=== PATIENT | male | born 1955 | race Caucasian/White ===

== ENCOUNTER → 2020-08-16 12:49 | Outpatient (CLI) | payer MEDICARE, BC, SELFPAY | PROVIDERS: PCP Family Medicine; Visit Provider Family Medicine | DX: I49.9 Cardiac arrhythmia, unspecified (principal) | CPT/HCPCS: 93225; 93226 ==

== ENCOUNTER → 2021-01-06 11:23 | Outpatient (CLI) | payer MEDICARE, BC, SELFPAY ==
--- NOTE | 2021-01-06 11:33 | XR_ITS ---
PROCEDURE INFORMATION: Exam: XR Right Hip Exam date and time: 01/06/2021 11:33 AM Age: 65 years old Clinical indication: Hip pain; Right hip; Additional info: Right hip pain TECHNIQUE: Imaging protocol: XR Right hip. Views: 2 or 3 views hip with pelvis when performed. COMPARISON: ABDPELWO CT abdomen pelvis wo con 08/19/2018 10:37 PM FINDINGS: Bones/joints: Patchy osteopenia. [id number] left and mild right hip osteoarthrosis. Mild degenerative spurring of the SI joints and pubic symphysis. Lower lumbar spondylosis, with moderate to advanced facet osteoarthropathy at L4-L5 and L5-S1. Soft tissues: Calcifications within the pelvis are probably within the prostate gland and bladder, as seen on prior CT study. IMPRESSION: 1. Mild right hip osteoarthrosis. 2. Additional degenerative changes as described.
== END ==
PROVIDERS: PCP Family Medicine; Visit Provider Family Medicine
DX: M25.551 Pain in right hip (principal)
CPT/HCPCS: 73502

== ENCOUNTER → 2021-02-14 08:04 | Outpatient (CLI) | payer MEDICARE, BC, SELFPAY ==
[2021-02-14 08:33] LABS: Basophils % 0.6 % (0.1-2.0); Eosinophils # 0.2 K/mm3 (0.0-0.4); Eosinophils % 2.4 % (0.1-12.0); Hemoglobin 17.9 g/dL (14.1-18.0); Lymphocytes % 27.1 % (10-50); Mean Corpuscular HGB Conc 33.8 g/dL (31.8-35.4); Mean Corpuscular Hemoglobin 30.6 pg (27.0-31.2); Mean Corpuscular Volume 90.4 fl (80-94); Mean Platelet Volume 7.9 fl (7.4-10.4); Monocytes # 0.5 K/mm3 (0.1-1.0); Monocytes % 6.4 % (1.7-9.3); Neutrophils # 4.7 K/mm3 (1.8-7.8); Neutrophils % 63.5 % (37.0-80.0); Platelet Count 372 K/mm3 (142-424); Red Blood Count 5.86 M/mm3 (4.60-6.20); Red Cell Distribution Width 14.4 % (11.5-17.5); White Blood Count 7.5 K/mm3 (4.8-10.8)
[2021-02-14 09:26] LABS: Chloride 102 mmol/L (98-107); Sodium 143 mmol/L (136-145)
[2021-02-14 09:27] LABS: Potassium 3.7 mmoL/L (3.5-5.1)
[2021-02-14 09:29] LABS: Alanine Aminotransferase 28 U/L (12-78); Albumin Level 4.3 g/dl (3.5-5.0); Albumin/Globulin Ratio 1.7 (1.1-1.8); Alkaline Phosphatase 64 U/L (38-126); Anion Gap 15.7 mEq/L (5-15); Aspartate Amino Transferase 27 U/L (17-59); Blood Urea Nitrogen 16 mg/dl (9-20); Carbon Dioxide 29 mmol/L (22.0-30.0); Cholesterol 194 mg/dl (140-200); Estimated Glomerular Filt Rate 75 ml/min (>60); GFR (African American) 91 ML/MIN (>60); Globulin 2.6 g/dL (1.3-3.2); Total Protein,Serum 6.9 g/dl (6.3-8.2); Triglycerides 144 mg/dl (30-150); VLDL Cholesterol 29 mg/dL (0-40)
[2021-02-14 09:30] LABS: Calcium 9.7 mg/dl (8.4-10.2); Chol/HDL Ratio 3.7 (1-3.5); Glucose 97 mg/dl (74-100); HDL Cholesterol 52 mg/dl (40-60)
[2021-02-14 09:41] LABS: Direct LDL Cholesterol 116.86 mg/dL (100-129)
[2021-02-14 10:40] LABS: Vitamin B12 877 pg/mL (239-931)
== END ==
PROVIDERS: Visit Provider Family Medicine
DX: I10 Essential (primary) hypertension (principal); E78.5 Hyperlipidemia, unspecified; E53.8 Deficiency of other specified B group vitamins
CPT/HCPCS: 36415; 80053; 80061; 82607; 85025

== ENCOUNTER → 2021-04-25 08:21 | Outpatient (CLI) | payer MEDICARE, BC, SELFPAY ==
[2021-04-25 08:24] LABS: Microscopic, Urine URINE MICROSCOPIC (MICROSCOPIC)
[2021-04-25 09:14] LABS: Basophils # 0.1 K/mm3 (0-0.2); Basophils % 0.8 % (0.1-2.0); Eosinophils # 0.2 K/mm3 (0.0-0.4); Eosinophils % 2.2 % (0.1-12.0); Hematocrit 52.3 % (42.0-52.0); Lymphocytes # 1.9 K/mm3 (0.7-4.5); Lymphocytes % 26.4 % (10-50); Mean Corpuscular HGB Conc 36.3 g/dL (31.8-35.4); Mean Corpuscular Hemoglobin 33.4 pg (27.0-31.2); Mean Corpuscular Volume 92.1 fl (80-94); Mean Platelet Volume 7.7 fl (7.4-10.4); Monocytes # 0.5 K/mm3 (0.1-1.0); Monocytes % 7.1 % (1.7-9.3); Neutrophils # 4.6 K/mm3 (1.8-7.8); Neutrophils % 63.6 % (37.0-80.0); Platelet Count 380 K/mm3 (142-424); Red Blood Count 5.68 M/mm3 (4.60-6.20); Red Cell Distribution Width 13.8 % (11.5-17.5); White Blood Count 7.2 K/mm3 (4.8-10.8)
[2021-04-25 10:17] LABS: Appearance,Urine CLEAR (Clear); Bilirubin,Urine Negative (Negative); Blood, Urine Negative (Negative); Color,Urine YELLOW (Yellow); Glucose,Urine (UA) Negative (Negative); Ketones,Urine Negative (Negative); Leukocyte Esterase,Urine 2+ (Negative); Nitrate,Urine Negative (Negative); PH,Urine 7.5 (5.0-8.5); Protein,Urine Negative (Negative); Urobilinogen,Urine 0.2 EU/dl (0.2)
[2021-04-25 10:18] LABS: Albumin Level 4.6 g/dl (3.5-5.0); Anion Gap 11.1 mEq/L (5-15); Blood Urea Nitrogen 13 mg/dl (9-20); Calcium 9.9 mg/dl (8.4-10.2); Carbon Dioxide 33 mmol/L (22.0-30.0); Chloride 101 mmol/L (98-107); Estimated Glomerular Filt Rate 85 ml/min (>60); GFR (African American) 102 ML/MIN (>60); Glucose 103 mg/dl (74-100); Phosphorous 3.3 mg/dl (2.5-4.5); Potassium 4.1 mmoL/L (3.5-5.1); Sodium 141 mmol/L (136-145)
[2021-04-25 10:30] LABS: Intact Parathyroid Hormone 43.2 pg/mL (7.5-53.5)
[2021-04-25 10:31] LABS: Creatinine,Urine Random 59 mg/dL (Not Estab.)
[2021-04-25 10:35] LABS: 25-OH Vitamin D, Total 37.5 ng/mL (30-100)
[2021-04-25 10:49] LABS: Bacteria,Urine 1+ /lpf; Squamous Epithelial Cell,Urine Occasional #/hpf (0-5)
== END ==
PROVIDERS: Visit Provider Student in an Organized Health Care Education/Training Program
DX: E83.50 Unspecified disorder of calcium metabolism (principal)
CPT/HCPCS: 36415; 80069; 81001; 82306; 82570; 83970; 84155; 85025; 87086

== ENCOUNTER → 2021-08-01 07:44 | Outpatient (CLI) | payer MEDICARE, BC, SELFPAY ==
[2021-08-01 08:30] LABS: Basophils # 0.1 K/mm3 (0-0.2); Basophils % 1.7 % (0.1-2.0); Eosinophils # 0.2 K/mm3 (0.0-0.4); Eosinophils % 2.6 % (0.1-12.0); Hematocrit 53.4 % (42.0-52.0); Hemoglobin 17.6 g/dL (14.1-18.0); Lymphocytes # 2.2 K/mm3 (0.7-4.5); Lymphocytes % 29.7 % (10-50); Mean Corpuscular HGB Conc 32.9 g/dL (31.8-35.4); Mean Platelet Volume 8.1 fl (7.4-10.4); Monocytes # 0.4 K/mm3 (0.1-1.0); Monocytes % 5.7 % (1.7-9.3); Neutrophils # 4.5 K/mm3 (1.8-7.8); Neutrophils % 60.3 % (37.0-80.0); Platelet Count 372 K/mm3 (142-424); Red Blood Count 5.87 M/mm3 (4.60-6.20); Red Cell Distribution Width 14.1 % (11.5-17.5); White Blood Count 7.4 K/mm3 (4.8-10.8)
[2021-08-01 08:51] LABS: Chloride 100 mmol/L (98-107); Sodium 138 mmol/L (136-145)
[2021-08-01 08:52] LABS: Potassium 3.9 mmoL/L (3.5-5.1)
[2021-08-01 08:54] LABS: Alanine Aminotransferase 37 U/L (12-78); Albumin Level 4.5 g/dl (3.5-5.0); Albumin/Globulin Ratio 1.9 (1.1-1.8); Alkaline Phosphatase 49 U/L (38-126); Anion Gap 9.9 mEq/L (5-15); Aspartate Amino Transferase 29 U/L (17-59); Bilirubin,Total 2.3 mg/dl (0.2-1.3); Blood Urea Nitrogen 14 mg/dl (9-20); Carbon Dioxide 32 mmol/L (22.0-30.0); Cholesterol 190 mg/dl (140-200); Estimated Glomerular Filt Rate 75 ml/min (>60); GFR (African American) 90 ML/MIN (>60); Globulin 2.4 g/dL (1.3-3.2); Total Protein,Serum 6.9 g/dl (6.3-8.2); Triglycerides 141 mg/dl (30-150); VLDL Cholesterol 28 mg/dL (0-40)
[2021-08-01 08:55] LABS: Calcium 9.8 mg/dl (8.4-10.2); Chol/HDL Ratio 3.9 (1-3.5); Glucose 103 mg/dl (74-100); HDL Cholesterol 49 mg/dl (40-60)
[2021-08-01 12:14] LABS: Vitamin B12 > 1000 pg/mL (239-931)
[2021-08-04 13:05] LABS: Prostate Specific Ag, Diagnost 2.14 ng/ml (0.0-4.0)
== END ==
PROVIDERS: PCP Family Medicine; Visit Provider Family Medicine
DX: I10 Essential (primary) hypertension (principal); E78.5 Hyperlipidemia, unspecified; E53.8 Deficiency of other specified B group vitamins; R35.0 Frequency of micturition
CPT/HCPCS: 36415; 80053; 80061; 82607; 84153; 85025

== ENCOUNTER → 2021-10-11 09:41 | Outpatient (CLI) | payer MEDICARE, BC, SELFPAY | PROVIDERS: PCP Family Medicine; Visit Provider Family Medicine | DX: Z20.822 Contact with and (suspected) exposure to COVID-19 (principal) | CPT/HCPCS: 87275; 87276; C9803; U0003; U0005 ==

== ENCOUNTER → 2022-02-06 07:31 | Outpatient (CLI) | payer MEDICARE, BC, SELFPAY ==
[2022-02-06 08:20] LABS: Basophils # 0.1 K/mm3 (0-0.2); Basophils % 1.4 % (0.1-2.0); Eosinophils # 0.2 K/mm3 (0.0-0.4); Eosinophils % 3.3 % (0.1-12.0); Hematocrit 52.9 % (42.0-52.0); Lymphocytes % 29.4 % (10-50); Mean Corpuscular HGB Conc 32.1 g/dL (31.8-35.4); Mean Corpuscular Volume 93.2 fl (80-94); Mean Platelet Volume 8.3 fl (7.4-10.4); Monocytes # 0.5 K/mm3 (0.1-1.0); Monocytes % 7.6 % (1.7-9.3); Neutrophils # 3.9 K/mm3 (1.8-7.8); Neutrophils % 58.3 % (37.0-80.0); Platelet Count 350 K/mm3 (142-424); Red Blood Count 5.67 M/mm3 (4.60-6.20); Red Cell Distribution Width 14.4 % (11.5-17.5); White Blood Count 6.8 K/mm3 (4.8-10.8)
[2022-02-06 08:52] LABS: Chloride 105 mmol/L (98-107); Potassium 3.8 mmoL/L (3.5-5.1); Sodium 140 mmol/L (136-145)
[2022-02-06 08:54] LABS: Alanine Aminotransferase 30 U/L (12-78); Aspartate Amino Transferase 33 U/L (17-59); Blood Urea Nitrogen 15 mg/dl (9-20); Estimated Glomerular Filt Rate 75 ml/min (>60); GFR (African American) 90 ML/MIN (>60)
[2022-02-06 08:55] LABS: Albumin Level 4.3 g/dl (3.5-5.0); Albumin/Globulin Ratio 1.7 (1.1-1.8); Alkaline Phosphatase 53 U/L (38-126); Anion Gap 7.8 mEq/L (5-15); Bilirubin,Total 2.7 mg/dl (0.2-1.3); Calcium 9.4 mg/dl (8.4-10.2); Carbon Dioxide 31 mmol/L (22.0-30.0); Cholesterol 173 mg/dl (140-200); Globulin 2.5 g/dL (1.3-3.2); Glucose 101 mg/dl (74-100); Total Protein,Serum 6.8 g/dl (6.3-8.2); Triglycerides 123 mg/dl (30-150); VLDL Cholesterol 25 mg/dL (0-40)
[2022-02-06 08:56] LABS: Chol/HDL Ratio 3.8 (1-3.5); HDL Cholesterol 45 mg/dl (40-60)
[2022-02-06 10:18] LABS: Vitamin B12 302 pg/mL (239-931)
[2022-02-07 08:43] LABS: Direct LDL Cholesterol 108 mg/dL (100-129)
== END ==
PROVIDERS: PCP Family Medicine; Visit Provider Family Medicine
DX: E53.8 Deficiency of other specified B group vitamins (principal); E78.5 Hyperlipidemia, unspecified; I10 Essential (primary) hypertension; C7A.012 Malignant carcinoid tumor of the ileum
CPT/HCPCS: 36415; 80053; 80061; 82607; 85025

== ENCOUNTER 2022-04-25 17:23 | Emergency (ER) | payer MEDICARE, BC, SELFPAY ==
[2022-04-25 18:25] VITALS: BP 179/100; PULSE 84; RESP 18; TEMP 36.6; O2SAT 98; BMI 32.4
--- NOTE | 2022-04-25 18:52 | HMH.EDGENADL ---
Discharge Plan Disposition Patient Disposition: Home, Self-Care Condition: Good Chief Complaint: Urogenital-Female Prescriptions Prescriptions: No Action tamsulosin 0.4 MG capsule 0.4 mg PO HS Qty: 10 0RF oxycodone-acetaminophen 1 EACH Tablet 1 tab PO QID PRN (Reason: Moderate To Severe Pain) Qty: 10 0RF oxycodone-acetaminophen 1 EACH tablet 1 tab PO QID PRN (Reason: Moderate To Severe Pain) Qty: 10 0RF Referrals Follow up/Referrals: Luis Lu MD [Primary Care Provider] - See instructions Activity Restrictions/Add. Instructions Additional Instructions/Restrictions: Call your urologist tomorrow for further instructions and to arrange removal of Xavier catheter Clinical Impressions Clinical Impression: Acute urinary retention Instructions Patient Instructions: DI for Urinary Retention in Men, How to Care for Your Xavier Catheter -- Male Discharge ED Provider: Farhat Ya General Adult HPI General Chief complaint: Urogenital-Female Stated complaint: POST OP 04/25 ON KIDNEY STONES CANT URINATE Time Seen by Provider: 04/25/22 18:46 Mode of Arrival: Ambulatory Source of Information: Patient Limitations: No Limitations Description of Symptoms (Recalled from ER Triage Doc. by RN): Patient reports he had a lithotripsy procedure done this morning at 0730 for kidney stones at [facility] and patient says he is unable to urinate since his procedure. History of Present Illness HPI narrative: Patient complains of urinary retention. He had lithotripsy at [address] [facility] and has not been able to urinate since. Complains of bladder distention. He tried to call his urologist, but did not get a return call, he called his primary care provider, Dr. Lu, who advised him to come to the emergency department. He has a history of 1 previous episode of urinary retention after surgery where he had to have a Xavier catheter reinserted. He has had a Xavier catheter inserted in our emergency department prior to my arrival and states that he feels much better. 900 cc of urine output. Related Data Previous Rx's Medication Instructions Recorded oxycodone-acetaminophen 7.5 mg-325 1 tab PO QID PRN Moderate To 08/19/18 mg tablet Severe Pain ##10 oxycodone-acetaminophen 7.5 mg-325 1 tab PO QID PRN Moderate To 08/19/18 mg tablet Severe Pain #10 tabs tamsulosin 0.4 mg capsule 0.4 mg PO HS #10 caps 08/19/18 Allergies Allergy/AdvReac Type Severity Reaction Status Date / Time No Known Allergies Allergy Verified 08/19/18 22:20 PFSH PFS Social History Smoking Status: Never smoker alcohol intake: current current occupational status: employed Travel in the last 8 weeks: None current occupational exposures/hazards: No ROS Obtained: Yes Systems reviewed as appropriate & no additional complaints except as documented Constitutional Constitutional: Denies fever(s) Gastrointestinal Gastrointestingal: Denies vomiting Genitourinary Male Genitourinary: Reports difficulty urinating Physical Exam General General appearance: alert and in no apparent distress Chest Chest inspection: Present normal inspection and symmetric chest wall rise Respiratory Respiratory exam: Absent respiratory distress Cardiovascular Cardiovascular exam: Present regular rate exam: Present other (Xavier catheter in place. 900 cc of urine in Xavier catheter bag with blood tingeing.) Neurological Exam Neurological exam: Present alert and oriented X3 Psychiatric Psychiatric exam: Present normal affect and normal mood Skin Skin exam: Present warm and dry Medical Decision Making Martín Inquiry Pt receiving controlled substance: No Vital Signs: 04/25/22 18:25 Temperature 97.9 F Temperature Source Oral Pulse Rate [Right Brachial] 84 Respiratory Rate 18 Blood Pressure [Right Arm] 179/100 H Blood Pressure Mean [Right Arm] 126 Blood Pressure Source [Right Arm] Automatic Cuff Blood Pres
[2022-04-25 19:48] VITALS: BP 167/78; PULSE 80; RESP 18; TEMP 36.6; O2SAT 98
== END 2022-04-25 19:49 | disposition home or self-care (01) ==
PROVIDERS: Emergency Provider Emergency Medicine; PCP Family Medicine
DX: R33.8 Other retention of urine (principal); Z87.442 Personal history of urinary calculi; Z98.890 Other specified postprocedural states
CPT/HCPCS: 99282

== ENCOUNTER → 2022-05-01 07:19 | Outpatient (CLI) | payer MEDICARE, BC, SELFPAY ==
[2022-05-01 07:32] LABS: Microscopic, Urine URINE MICROSCOPIC (MICROSCOPIC)
[2022-05-01 08:39] LABS: Appearance,Urine CLEAR (Clear); Basophils # 0.1 K/mm3 (0-0.2); Basophils % 1.3 % (0.1-2.0); Bilirubin,Urine Negative (Negative); Blood, Urine TRACE-I (Negative); Color,Urine YELLOW (Yellow); Eosinophils # 0.2 K/mm3 (0.0-0.4); Eosinophils % 2.7 % (0.1-12.0); Glucose,Urine (UA) Negative (Negative); Hemoglobin 17.6 g/dL (14.1-18.0); Ketones,Urine Negative (Negative); Leukocyte Esterase,Urine Negative (Negative); Lymphocytes # 1.9 K/mm3 (0.7-4.5); Mean Corpuscular HGB Conc 33.1 g/dL (31.8-35.4); Mean Corpuscular Volume 90.6 fl (80-94); Monocytes # 0.5 K/mm3 (0.1-1.0); Monocytes % 6.7 % (1.7-9.3); Neutrophils # 4.5 K/mm3 (1.8-7.8); Neutrophils % 63.2 % (37.0-80.0); Nitrate,Urine Negative (Negative); Platelet Count 353 K/mm3 (142-424); Protein,Urine Negative (Negative); Red Blood Count 5.85 M/mm3 (4.60-6.20); Red Cell Distribution Width 14.4 % (11.5-17.5); Urobilinogen,Urine 0.2 EU/dl (0.2); White Blood Count 7.1 K/mm3 (4.8-10.8)
[2022-05-01 08:50] LABS: Creatinine,Urine Random 79 mg/dL (Not Estab.)
[2022-05-01 09:18] LABS: Squamous Epithelial Cell,Urine Occasional #/hpf (0-5); WBC,Urine Occasional #/hpf (0-3)
[2022-05-01 09:19] LABS: Albumin Level 4.4 g/dl (3.5-5.0); Anion Gap 16.9 mEq/L (5-15); Blood Urea Nitrogen 20 mg/dl (9-20); Calcium 10.4 mg/dl (8.4-10.2); Carbon Dioxide 32 mmol/L (22.0-30.0); Chloride 98 mmol/L (98-107); Estimated Glomerular Filt Rate 67 ml/min (>60); GFR (African American) 81 ML/MIN (>60); Glucose 96 mg/dl (74-100); Phosphorous 3.7 mg/dl (2.5-4.5); Potassium 3.9 mmoL/L (3.5-5.1); Sodium 143 mmol/L (136-145)
== END ==
PROVIDERS: PCP Family Medicine; Visit Provider Student in an Organized Health Care Education/Training Program
DX: N20.0 Calculus of kidney (principal)
CPT/HCPCS: 36415; 80069; 81001; 82570; 84155; 85025

== ENCOUNTER 2022-06-23 11:15 | Emergency (ER) | payer MEDICARE, BC, SELFPAY ==
[2022-06-23 11:16] VITALS: BP 126/58; PULSE 62; RESP 16; TEMP 36.4; O2SAT 96; BMI 32.4
[2022-06-23 11:27] LABS: Microscopic, Urine URINE MICROSCOPIC (MICROSCOPIC)
[2022-06-23 11:35] LABS: Appearance,Urine SL CLOUDY (Clear); Bilirubin,Urine Negative (Negative); Blood, Urine 3+ (Negative); Color,Urine AMBER (Yellow); Glucose,Urine (UA) Negative (Negative); Ketones,Urine Negative (Negative); Leukocyte Esterase,Urine Negative (Negative); Nitrate,Urine Negative (Negative); Protein,Urine TRACE (Negative); Specific Gravity, Urine 1.025 (1.005-1.030); Urobilinogen,Urine 0.2 EU/dl (0.2)
--- NOTE | 2022-06-23 11:38 | CT_ITS ---
PROCEDURE INFORMATION: Exam: CT Abdomen And Pelvis Without Contrast Exam date and time: 06/23/2022 12:12 PM Age: 67 years old Clinical indication: Abdominal pain; Patient HX: Right flank pain, HX kidney stones; Additional info: C/O right side pain TECHNIQUE: Imaging protocol: Computed tomography of the abdomen and pelvis without contrast. Radiation optimization: All CT scans at this facility use at least one of these dose optimization techniques: automated exposure control; mA and/or kV adjustment per patient size (includes targeted exams where dose is matched to clinical indication); or iterative reconstruction. COMPARISON: COUNTS INCLUDE 234 BEDS AT [facility] CT abdomen pelvis wo con 08/19/2018 10:37 PM FINDINGS: Lungs: Bibasilar hypoventilatory changes otherwise lung bases are clear. Chronic granulomatous calcifications within the spleen, unchanged. No splenomegaly. Liver: Normal. No mass. Gallbladder and bile ducts: Solitary 2 cm gallstone otherwise Gallbladder has unremarkable. Pancreas: Unremarkable. Main pancreatic duct is not significantly dilated. Spleen: See Lungs finding. Adrenal glands: Normal. No mass. Kidneys and ureters: 3 mm obstructing calculus distal 3rd right ureter 5 cm above the right ureterovesical junction resulting in mild right-sided hydronephrosis. Small nonobstructing left renal stone superimposed on small peripelvic cysts, unchanged. Stomach and bowel: Stable postsurgical changes transverse colon. Stable small pelvic lymph nodes favoring benign etiology. Appendix: No evidence of appendicitis. Intraperitoneal space: Unremarkable. No free air. No significant fluid collection. Vasculature: Unremarkable. No abdominal aortic aneurysm. Lymph nodes: See Stomach and bowel finding. Urinary bladder: Numerous small bladder calculi within the dependent portion of the urinary bladder many of which were present previously. Reproductive: Prostate gland is mildly enlarged. Bones/joints: Scattered degenerative changes of the lower thoracic and lumbar spine. No acute bony abnormalities. Soft tissues: Moderate size fat containing right inguinal hernia stable in size but now contains an oblong shaped fluid like structure measuring 4 x 2 cm likely representing some trapped ascitic fluid. Small left fat containing inguinal hernia unchanged. IMPRESSION: 1. 3 mm obstructing calculus right distal ureter resulting in mild right hydronephrosis. 2. Tiny nonobstructing left renal stone in numerous bladder calculi, unchanged. 3. Stable size of right sided fat containing inguinal hernia which now contains small amount of trapped ascitic fluid. 4. Additional nonemergent findings as above.
[2022-06-23 11:45] LABS: Bacteria,Urine Trace /lpf; RBC,Urine 50-100 #/hpf (0-3); Squamous Epithelial Cell,Urine Occasional #/hpf (0-5)
[2022-06-23 11:47] LABS: Chloride 101 mmol/L (98-107); Potassium 3.1 mmoL/L (3.5-5.1); Sodium 141 mmol/L (136-145)
[2022-06-23 11:49] LABS: Amylase 64 U/L (30-110)
[2022-06-23 11:50] LABS: Alanine Aminotransferase 42 U/L (12-78); Albumin Level 4.4 g/dl (3.5-5.0); Albumin/Globulin Ratio 1.6 (1.1-1.8); Alkaline Phosphatase 60 U/L (38-126); Anion Gap 15.1 mEq/L (5-15); Aspartate Amino Transferase 37 U/L (17-59); Basophils # 0.1 K/mm3 (0-0.2); Basophils % 0.5 % (0.1-2.0); Bilirubin,Total 1.8 mg/dl (0.2-1.3); Blood Urea Nitrogen 16 mg/dl (9-20); Calcium 9.5 mg/dl (8.4-10.2); Carbon Dioxide 28 mmol/L (22.0-30.0); Creatinine Clearance Estimated 82 mL/min (50-200); Eosinophils % 0.3 % (0.1-12.0); Estimated Glomerular Filt Rate 67 ml/min (>60); GFR (African American) 81 ML/MIN (>60); Globulin 2.7 g/dL (1.3-3.2); Glucose 157 mg/dl (74-100); Hematocrit 51.6 % (42.0-52.0); Hemoglobin 17.1 g/dL (14.1-18.0); Lipase 55 U/L (23-300); Lymphocytes # 1.8 K/mm3 (0.7-4.5); Lymphocytes % 13.2 % (10-50); Mean Corpuscular HGB Conc 33.1 g/dL (31.8-35.4); Mean Corpuscular Hemoglobin 29.6 pg (27.0-31.2); Mean Corpuscular Volume 89.5 fl (80-94); Monocytes # 0.4 K/mm3 (0.1-1.0); Monocytes % 3.1 % (1.7-9.3); Neutrophils # 11.2 K/mm3 (1.8-7.8); Neutrophils % 82.9 % (37.0-80.0); Platelet Count 405 K/mm3 (142-424); Red Blood Count 5.77 M/mm3 (4.60-6.20); Red Cell Distribution Width 14.1 % (11.5-17.5); Total Protein,Serum 7.1 g/dl (6.3-8.2); White Blood Count 13.5 K/mm3 (4.8-10.8)
[2022-06-23 12:00] VITALS: BP 133/59; PULSE 64; O2SAT 96
--- NOTE | 2022-06-23 12:01 | PC.NURSE ---
checked on patient, he is resting on ED stretcher with daughter at BS. They report they are both doing fine, call light within reach
--- NOTE | 2022-06-23 12:03 | HMH.EDGENADL ---
Discharge Plan Disposition Patient Disposition: Home, Self-Care Condition: Good Prescriptions Prescriptions: New oxycodone-acetaminophen [Percocet] 7.5-325 mg tablet 1 tab PO Q6H PRN (Reason: pain) Qty: 10 0RF ondansetron 4 mg tablet,disintegrating 4 mg PO Q8H PRN (Reason: nausea and vomiting) Qty: 10 0RF No Action tamsulosin 0.4 MG capsule 0.4 mg PO HS Qty: 10 0RF oxycodone-acetaminophen 1 EACH tablet 1 tab PO QID PRN (Reason: Moderate To Severe Pain) Qty: 10 0RF oxycodone-acetaminophen 1 EACH tablet 1 tab PO QID PRN (Reason: Moderate To Severe Pain) Qty: 10 0RF Referrals Follow up/Referrals: Luis Lu MD [Primary Care Provider] - See instructions Activity Restrictions/Add. Instructions Additional Instructions/Restrictions: Continue taking the Flomax. Percocet as needed for pain. Zofran as needed for nausea. See Dr. Rodriguez as soon as possible for further evaluation. Take the disc of your CAT scan with you to follow-up appointment. Drink plenty of fluids. Strain your urine and save any stones you catch. Return immediately if you develop a fever or have uncontrollable vomiting or uncontrollable pain. Additional instructions for CONTROLLED SUBSTANCES: You have been prescribed a medication that is a controlled substance. Controlled substances include pain medications known as opiates and sedative nerve medications known as benzodiazepines. Tramadol, fioricet, and gabapentin are also controlled substances. Some common opiates include: Codeine (such as Tylenol #3) Hydrocodone (Vicodin, Lortab, Lorcet, [place]) Oxycodone (Percocet, Percodan, Oxycodone, Oxy IR) Some common benzodiazepines include: Diazepam (Valium) Lorazepam (Ativan) Alprazolam (Xanax) Clonazepam (Klonopin) Oxazepam (Serax) All of these controlled substances are highly addictive and frequently abused. Misuse can and frequently does lead to addiction as well as overdose and . Medication should be stored in a locked cabinet or other secure storage unit. Do not store the medication in a motor vehicle. Short term supplies, 3 days or less, are prescribed because of the highly addictive nature of the medication. Any of the controlled substance medication NOT taken should be disposed of properly and NOT SAVED. The recommended method of disposing of unused medications is: Place the medicines in a sealable plastic bag. If the medicine is a solid, crush it or add water to dissolve it. Add something undesirable (cat litter, coffee grounds, etc.) Dispose of sealed bag in household trash Do not flush or pour unused medicines down a sink or drain. Controlled substances should not be shared, given away or sold. Because of the addictive nature and frequent abuse, these medications are sometimes stolen. These medications should be kept in a safe place where they cannot be stolen. Do not keep them in your car or purse. Lost or stolen prescriptions for controlled substances WILL NOT BE REFILLED in this emergency department, regardless of whether a police report was filed. Clinical Impressions Clinical Impression: Right ureteral calculus, Bladder calculi, Calculus of left kidney Instructions Patient Instructions: DI for Kidney Stones Discharge ED Provider: Farhat Ya General Adult HPI General Chief complaint: PAIN Stated complaint: Possible kidney stone Time Seen by Provider: 06/23/22 12:00 Mode of Arrival: Ambulatory Source of Information: Patient Limitations: No Limitations Description of Symptoms (Recalled from ER Triage Doc. by RN): c/o right groin pain that goes up to his right side that woke him up around 0630 this am. States some nausea since he got here, no burning, irritation or blood noted in urine. Hx of kidney stones ans states this pain feels the same as with the past kidney stone pain. History of Present Illness HPI narrative: Patient believes that he is passing a
[2022-06-23 12:30] VITALS: BP 122/65; PULSE 64; RESP 16; O2SAT 96
--- NOTE | 2022-06-23 12:58 | PC.NURSE ---
pt resting on ED stretcher with daughter at BS, no other needs at this time
[2022-06-23 13:47] VITALS: BP 131/72; PULSE 72; O2SAT 96
[2022-06-23 14:00] VITALS: BP 127/69; PULSE 66; O2SAT 94
[2022-06-23 14:24] VITALS: BP 127/69; PULSE 66; RESP 15; TEMP 36.4; O2SAT 95
== END 2022-06-23 14:27 | disposition home or self-care (01) ==
PROVIDERS: Emergency Provider Emergency Medicine; PCP Family Medicine
DX: N20.2 Calculus of kidney with calculus of ureter (principal); N21.0 Calculus in bladder
CPT/HCPCS: 74176; 80053; 81001; 82150; 83690; 85025; 96361; 96374; 96375; 99285; J2405

== ENCOUNTER → 2022-08-05 07:52 | Outpatient (CLI) | payer MEDICARE, BC, SELFPAY ==
[2022-08-05 08:42] LABS: Basophils # 0.1 K/mm3 (0-0.2); Basophils % 1.3 % (0.1-2.0); Eosinophils # 0.2 K/mm3 (0.0-0.4); Eosinophils % 3.3 % (0.1-12.0); Hematocrit 51.4 % (42.0-52.0); Hemoglobin 16.8 g/dL (14.1-18.0); Lymphocytes # 2.2 K/mm3 (0.7-4.5); Lymphocytes % 30.9 % (10-50); Mean Corpuscular HGB Conc 32.8 g/dL (31.8-35.4); Mean Corpuscular Volume 88.5 fl (80-94); Monocytes # 0.5 K/mm3 (0.1-1.0); Monocytes % 6.6 % (1.7-9.3); Neutrophils # 4.2 K/mm3 (1.8-7.8); Neutrophils % 57.8 % (37.0-80.0); Platelet Count 336 K/mm3 (142-424); Red Blood Count 5.81 M/mm3 (4.60-6.20); Red Cell Distribution Width 14.2 % (11.5-17.5); White Blood Count 7.3 K/mm3 (4.8-10.8)
[2022-08-05 09:36] LABS: Alanine Aminotransferase 33 U/L (12-78); Albumin Level 4.3 g/dl (3.5-5.0); Albumin/Globulin Ratio 1.9 (1.1-1.8); Alkaline Phosphatase 56 U/L (38-126); Anion Gap 8.7 mEq/L (5-15); Aspartate Amino Transferase 28 U/L (17-59); Bilirubin,Total 1.3 mg/dl (0.2-1.3); Blood Urea Nitrogen 19 mg/dl (9-20); Calcium 9.2 mg/dl (8.4-10.2); Carbon Dioxide 31 mmol/L (22.0-30.0); Chloride 106 mmol/L (98-107); Chol/HDL Ratio 3.6 (1-3.5); Cholesterol 173 mg/dl (140-200); Estimated Glomerular Filt Rate 67 ml/min (>60); GFR (African American) 81 ML/MIN (>60); Globulin 2.3 g/dL (1.3-3.2); Glucose 89 mg/dl (74-100); HDL Cholesterol 48 mg/dl (40-60); Potassium 3.7 mmoL/L (3.5-5.1); Sodium 142 mmol/L (136-145); Total Protein,Serum 6.6 g/dl (6.3-8.2); Triglycerides 150 mg/dl (30-150); VLDL Cholesterol 30 mg/dL (0-40)
[2022-08-05 09:47] LABS: Direct LDL Cholesterol 96.07 mg/dL (100-129)
[2022-08-05 10:05] LABS: Prostate Specific Ag Screen 2.4 ng/ml (0.0-4.0)
[2022-08-05 10:24] LABS: Vitamin B12 421 pg/mL (239-931)
== END ==
PROVIDERS: PCP Family Medicine; Visit Provider Family Medicine
DX: I10 Essential (primary) hypertension (principal); E78.5 Hyperlipidemia, unspecified; E53.8 Deficiency of other specified B group vitamins; N40.2 Nodular prostate without lower urinary tract symptoms; Z12.5 Encounter for screening for malignant neoplasm of prostate
CPT/HCPCS: 36415; 80053; 80061; 82607; 85025; G0103

== ENCOUNTER → 2023-02-03 07:41 | Outpatient (CLI) | payer MEDICARE, BC, SELFPAY ==
[2023-02-03 07:56] LABS: Microscopic, Urine URINE MICROSCOPIC (MICROSCOPIC)
[2023-02-03 08:18] LABS: Basophils % 0.4 % (0.1-2.0); Eosinophils # 0.2 K/mm3 (0.0-0.4); Eosinophils % 2.1 % (0.1-12.0); Hemoglobin 16.3 g/dL (14.1-18.0); Lymphocytes # 2.2 K/mm3 (0.7-4.5); Lymphocytes % 28.4 % (10-50); Mean Corpuscular HGB Conc 32.6 g/dL (31.8-35.4); Mean Corpuscular Volume 89.1 fl (80-94); Monocytes # 0.5 K/mm3 (0.1-1.0); Monocytes % 6.3 % (1.7-9.3); Neutrophils # 4.8 K/mm3 (1.8-7.8); Neutrophils % 62.7 % (37.0-80.0); Platelet Count 319 K/mm3 (142-424); Red Blood Count 5.62 M/mm3 (4.60-6.20); Red Cell Distribution Width 14.3 % (11.5-17.5); White Blood Count 7.6 K/mm3 (4.8-10.8)
[2023-02-03 08:30] LABS: Appearance,Urine SL CLOUDY (Clear); Bilirubin,Urine Negative (Negative); Blood, Urine TRACE-I (Negative); Color,Urine YELLOW (Yellow); Glucose,Urine (UA) Negative (Negative); Ketones,Urine Negative (Negative); Leukocyte Esterase,Urine 2+ (Negative); Nitrate,Urine Negative (Negative); PH,Urine 6.5 (5.0-8.5); Protein,Urine Negative (Negative); Urobilinogen,Urine 0.2 EU/dl (0.2)
[2023-02-03 08:45] LABS: Alanine Aminotransferase 40 U/L (12-78); Albumin Level 4.4 g/dl (3.5-5.0); Albumin/Globulin Ratio 1.7 (1.1-1.8); Alkaline Phosphatase 59 U/L (38-126); Anion Gap 11.6 mEq/L (5-15); Aspartate Amino Transferase 30 U/L (17-59); Bilirubin,Total 2.4 mg/dl (0.2-1.3); Blood Urea Nitrogen 21 mg/dl (9-20); Calcium 9.7 mg/dl (8.4-10.2); Carbon Dioxide 30 mmol/L (22.0-30.0); Chloride 104 mmol/L (98-107); Cholesterol 207 mg/dl (140-200); Estimated Glomerular Filt Rate 84 ml/min (>60); GFR (African American) 102 ML/MIN (>60); Globulin 2.6 g/dL (1.3-3.2); Glucose 98 mg/dl (74-100); HDL Cholesterol 52 mg/dl (40-60); Potassium 3.6 mmoL/L (3.5-5.1); Sodium 142 mmol/L (136-145); Triglycerides 176 mg/dl (30-150); VLDL Cholesterol 35 mg/dL (0-40)
[2023-02-03 08:46] LABS: Albumin Level 4.5 g/dl (3.5-5.0); Anion Gap 11.8 mEq/L (5-15); Blood Urea Nitrogen 20 mg/dl (9-20); Calcium 9.7 mg/dl (8.4-10.2); Carbon Dioxide 31 mmol/L (22.0-30.0); Chloride 103 mmol/L (98-107); Estimated Glomerular Filt Rate 75 ml/min (>60); GFR (African American) 90 ML/MIN (>60); Glucose 99 mg/dl (74-100); Phosphorous 3.4 mg/dl (2.5-4.5); Potassium 3.8 mmoL/L (3.5-5.1); Sodium 142 mmol/L (136-145)
[2023-02-03 08:47] LABS: Creatinine,Urine Random 68 mg/dL (Not Estab.)
[2023-02-03 08:50] LABS: Microalbumin/Creatinine Ratio 36.7
[2023-02-03 08:56] LABS: Direct LDL Cholesterol 116.74 mg/dL (100-129)
[2023-02-03 08:57] LABS: Intact Parathyroid Hormone 41.9 pg/mL (7.5-53.5)
[2023-02-03 09:00] LABS: Bacteria,Urine Trace /lpf; RBC,Urine Occasional #/hpf (0-3); Squamous Epithelial Cell,Urine Occasional #/hpf (0-5); WBC,Urine 20-50 #/hpf (0-3)
[2023-02-03 09:01] LABS: 25-OH Vitamin D, Total 35.2 ng/mL (30-100)
[2023-02-03 09:34] LABS: Vitamin B12 424 pg/mL (239-931)
== END ==
PROVIDERS: PCP Family Medicine; Visit Provider Student in an Organized Health Care Education/Training Program
DX: N20.0 Calculus of kidney (principal); R82.994 Hypercalciuria; I10 Essential (primary) hypertension; E78.5 Hyperlipidemia, unspecified; E53.8 Deficiency of other specified B group vitamins; C7A.012 Malignant carcinoid tumor of the ileum
CPT/HCPCS: 36415; 80053; 80061; 80069; 81001; 82043; 82306; 82570; 82607; 83970; 85025; 87086

== ENCOUNTER 2023-07-30 07:29 | Outpatient (CLI) | payer MEDICARE, BC, SELFPAY ==
[2023-07-30 07:57] LABS: Basophils # 0.1 K/mm3 (0-0.2); Basophils % 1.1 % (0.1-2.0); Eosinophils # 0.2 K/mm3 (0.0-0.4); Eosinophils % 3.1 % (0.1-12.0); Hematocrit 52.9 % (42.0-52.0); Hemoglobin 17.9 g/dL (14.1-18.0); Lymphocytes # 2.3 K/mm3 (0.7-4.5); Mean Corpuscular HGB Conc 33.8 g/dL (31.8-35.4); Mean Corpuscular Hemoglobin 30.3 pg (27.0-31.2); Mean Corpuscular Volume 89.7 fl (80-94); Monocytes # 0.5 K/mm3 (0.1-1.0); Monocytes % 7.2 % (1.7-9.3); Neutrophils % 56.6 % (37.0-80.0); Platelet Count 300 K/mm3 (142-424); Red Blood Count 5.89 M/mm3 (4.60-6.20); Red Cell Distribution Width 14.3 % (11.5-17.5); White Blood Count 7.1 K/mm3 (4.8-10.8)
[2023-07-30 08:43] LABS: Chloride 106 mmol/L (98-107); Potassium 3.7 mmoL/L (3.5-5.1); Sodium 140 mmol/L (136-145)
[2023-07-30 08:45] LABS: Blood Urea Nitrogen 21 mg/dl (9-20); Estimated Glomerular Filt Rate 67 ml/min (>60); GFR (African American) 81 ML/MIN (>60)
[2023-07-30 08:46] LABS: Alanine Aminotransferase 49 U/L (12-78); Albumin Level 4.2 g/dl (3.5-5.0); Albumin/Globulin Ratio 1.7 (1.1-1.8); Alkaline Phosphatase 53 U/L (38-126); Anion Gap 8.7 mEq/L (5-15); Aspartate Amino Transferase 37 U/L (17-59); Bilirubin,Total 1.9 mg/dl (0.2-1.3); Calcium 9.5 mg/dl (8.4-10.2); Carbon Dioxide 29 mmol/L (22.0-30.0); Chol/HDL Ratio 4.7 (1-3.5); Cholesterol 194 mg/dl (140-200); Globulin 2.5 g/dL (1.3-3.2); Glucose 98 mg/dl (74-100); HDL Cholesterol 41 mg/dl (40-60); Total Protein,Serum 6.7 g/dl (6.3-8.2); Triglycerides 153 mg/dl (30-150); VLDL Cholesterol 31 mg/dL (0-40)
[2023-07-30 09:14] LABS: Direct LDL Cholesterol 111.14 mg/dL (100-129)
[2023-07-30 09:57] LABS: Prostate Specific Ag, Diagnost 3.39 ng/ml (0.0-4.0)
[2023-07-30 10:16] LABS: Vitamin B12 767 pg/mL (239-931)
== END 2023-07-30 23:59 ==
PROVIDERS: PCP Family Medicine; Visit Provider Family Medicine
DX: N40.2 Nodular prostate without lower urinary tract symptoms (principal); E78.5 Hyperlipidemia, unspecified; E53.8 Deficiency of other specified B group vitamins; I10 Essential (primary) hypertension
CPT/HCPCS: 36415; 80053; 80061; 82607; 84153; 85025

== ENCOUNTER 2024-01-15 07:43 | Outpatient (CLI) | payer MEDICARE, BC, SELFPAY ==
[2024-01-15 08:56] LABS: Alanine Aminotransferase 43 U/L (12-78); Albumin Level 4.2 g/dl (3.5-5.0); Albumin/Globulin Ratio 1.8 (1.1-1.8); Alkaline Phosphatase 59 U/L (38-126); Anion Gap 10.6 mEq/L (5-15); Aspartate Amino Transferase 33 U/L (17-59); Blood Urea Nitrogen 19 mg/dl (9-20); Carbon Dioxide 29 mmol/L (22.0-30.0); Chloride 105 mmol/L (98-107); Chol/HDL Ratio 4.2 (1-3.5); Cholesterol 185 mg/dl (140-200); Estimated Glomerular Filt Rate 67 ml/min (>60); GFR (African American) 81 ML/MIN (>60); Globulin 2.4 g/dL (1.3-3.2); Glucose 99 mg/dl (74-100); HDL Cholesterol 44 mg/dl (40-60); Potassium 3.6 mmoL/L (3.5-5.1); Sodium 141 mmol/L (136-145); Total Protein,Serum 6.6 g/dl (6.3-8.2); Triglycerides 205 mg/dl (30-150); VLDL Cholesterol 41 mg/dL (0-40)
[2024-01-15 09:08] LABS: Direct LDL Cholesterol 102.01 mg/dL (100-129)
[2024-01-15 09:27] LABS: Prostate Specific Ag, Diagnost 2.69 ng/ml (0.0-4.0)
[2024-01-15 09:46] LABS: Vitamin B12 505 pg/mL (239-931)
== END 2024-01-15 23:59 | disposition home or self-care (01) ==
LOC: LAB 07:45
PROVIDERS: PCP Family Medicine; Visit Provider Family Medicine
DX: E78.5 Hyperlipidemia, unspecified (principal); N40.2 Nodular prostate without lower urinary tract symptoms; E53.8 Deficiency of other specified B group vitamins; C7A.012 Malignant carcinoid tumor of the ileum; I10 Essential (primary) hypertension
CPT/HCPCS: 36415; 80053; 80061; 82607; 84153

== ENCOUNTER 2024-02-24 07:46 | Outpatient (CLI) | payer MEDICARE, BC, SELFPAY ==
[2024-02-24 07:57] LABS: Microscopic, Urine URINE MICROSCOPIC (MICROSCOPIC)
[2024-02-24 08:21] LABS: Basophils # 0.1 K/mm3 (0-0.2); Basophils % 1.3 % (0.1-2.0); Eosinophils # 0.3 K/mm3 (0.0-0.4); Eosinophils % 3.7 % (0.1-12.0); Hemoglobin 17.6 g/dL (14.1-18.0); Lymphocytes # 2.2 K/mm3 (0.7-4.5); Mean Corpuscular HGB Conc 32.1 g/dL (31.8-35.4); Mean Corpuscular Hemoglobin 29.8 pg (27.0-31.2); Mean Corpuscular Volume 92.9 fl (80-94); Mean Platelet Volume 8.4 fl (7.4-10.4); Monocytes # 0.5 K/mm3 (0.1-1.0); Monocytes % 6.1 % (1.7-9.3); Neutrophils # 5.3 K/mm3 (1.8-7.8); Neutrophils % 62.9 % (37.0-80.0); Platelet Count 325 K/mm3 (142-424); Red Blood Count 5.92 M/mm3 (4.60-6.20); Red Cell Distribution Width 14.6 % (11.5-17.5); White Blood Count 8.4 K/mm3 (4.8-10.8)
[2024-02-24 08:35] LABS: Albumin Level 4.3 g/dl (3.5-5.0); Anion Gap 10.8 mEq/L (5-15); Blood Urea Nitrogen 20 mg/dl (9-20); Calcium 9.3 mg/dl (8.4-10.2); Carbon Dioxide 27 mmol/L (22.0-30.0); Chloride 106 mmol/L (98-107); Estimated Glomerular Filt Rate 84 ml/min (>60); GFR (African American) 102 ML/MIN (>60); Glucose 100 mg/dl (74-100); Phosphorous 3.1 mg/dl (2.5-4.5); Potassium 3.8 mmoL/L (3.5-5.1); Sodium 140 mmol/L (136-145)
[2024-02-24 08:57] LABS: Appearance,Urine SL CLOUDY (Clear); Bilirubin,Urine Negative (Negative); Blood, Urine Negative (Negative); Color,Urine YELLOW (Yellow); Glucose,Urine (UA) Negative (Negative); Ketones,Urine Negative (Negative); Leukocyte Esterase,Urine 3+ (Negative); Nitrate,Urine Negative (Negative); PH,Urine 7.5 (5.0-8.5); Protein,Urine Negative (Negative); Specific Gravity, Urine 1.015 (1.005-1.030); Urobilinogen,Urine 0.2 EU/dl (0.2)
[2024-02-24 09:18] LABS: Amorphous Sediment,Urine Trace /lpf; Bacteria,Urine Trace /lpf; Creatinine,Urine Random 67 mg/dL (Not Estab.)
== END 2024-02-24 23:59 | disposition home or self-care (01) ==
LOC: LAB 07:49
PROVIDERS: PCP Family Medicine; Visit Provider Student in an Organized Health Care Education/Training Program
DX: N20.0 Calculus of kidney (principal)
CPT/HCPCS: 36415; 80069; 81001; 82570; 84156; 85025; 87086

== ENCOUNTER 2024-08-06 06:36 | Outpatient (CLI) | payer MEDICARE, BC, SELFPAY ==
--- NOTE | 2024-08-06 06:44 | CT_ITS ---
FINAL REPORT TECHNIQUE: Noncontrast CT exam of the abdomen and pelvis. This study was performed with techniques to keep radiation doses as low as reasonably achievable (ALARA). Individualized dose reduction techniques using automated exposure control or adjustment of mA and/or kV according to the patient''s size were employed. CLINICAL HISTORY: RLQ PAIN COMPARISON: 06/23/2022 FINDINGS: Abdomen: Lung bases are clear. Liver, spleen, pancreas and adrenal glands have a normal CT appearance in their limited unenhanced state. There is a small hiatal hernia. Gallstones are present. There is a small, nonobstructing lower pole left renal stone. There has been interval resolution of previously seen right hydronephrosis. Patient is status post right colectomy. Pelvis: Numerous stones are seen in the dependent urinary bladder. There are bilateral inguinal hernias. Prostate is mildly enlarged. IMPRESSION: No evidence of upper urinary tract obstruction. Numerous urinary bladder stones. Solitary, nonobstructing left renal stone. Uncomplicated cholelithiasis. Reviewed, Interpreted and Dictated by Neva Almazan MD Transcribed by Alyssa Conroy Authenticated and [facility]
== END 2024-08-06 23:59 | disposition home or self-care (01) ==
LOC: RAD 06:38
PROVIDERS: PCP Family Medicine; Visit Provider Family Medicine
DX: R10.31 Right lower quadrant pain (principal); N39.0 Urinary tract infection, site not specified; K40.90 Unilateral inguinal hernia, without obstruction or gangrene, not specified as recurrent; C7A.012 Malignant carcinoid tumor of the ileum; Z87.442 Personal history of urinary calculi
CPT/HCPCS: 74176

== ENCOUNTER 2024-08-11 07:41 | Outpatient (CLI) | payer MEDICARE, BC, SELFPAY ==
[2024-08-11 09:24] LABS: Albumin Level 4.5 g/dl (3.5-5.0); Chloride 100 mmol/L (98-107); Potassium 3.7 mmoL/L (3.5-5.1); Sodium 140 mmol/L (136-145)
[2024-08-11 09:26] LABS: Alanine Aminotransferase 55 U/L (12-78); Blood Urea Nitrogen 15 mg/dl (9-20); Estimated Glomerular Filt Rate 66 ml/min (>60); GFR (African American) 80 ML/MIN (>60)
[2024-08-11 09:27] LABS: Alkaline Phosphatase 52 U/L (38-126); Anion Gap 10.7 mEq/L (5-15); Aspartate Amino Transferase 39 U/L (17-59); Bilirubin,Total 2.8 mg/dl (0.2-1.3); Calcium 9.6 mg/dl (8.4-10.2); Carbon Dioxide 33 mmol/L (22.0-30.0); Chol/HDL Ratio 4.2 (1-3.5); Cholesterol 202 mg/dl (140-200); Globulin 2.3 g/dL (1.3-3.2); Glucose 106 mg/dl (74-100); HDL Cholesterol 48 mg/dl (40-60); Magnesium 1.9 mg/dl (1.6-2.3); Total Protein,Serum 6.8 g/dl (6.3-8.2); Triglycerides 161 mg/dl (30-150); VLDL Cholesterol 32 mg/dL (0-40)
[2024-08-11 09:38] LABS: Direct LDL Cholesterol 117.91 mg/dL (100-129)
[2024-08-11 10:00] LABS: Prostate Specific Ag Screen 2.9 ng/ml (0.0-4.0)
[2024-08-11 19:58] LABS: Vitamin B12 575 pg/mL (239-931)
== END 2024-08-11 23:59 | disposition home or self-care (01) ==
LOC: LAB 07:44
PROVIDERS: PCP Family Medicine; Visit Provider Family Medicine
DX: E78.5 Hyperlipidemia, unspecified (principal); I10 Essential (primary) hypertension; N40.2 Nodular prostate without lower urinary tract symptoms; E53.8 Deficiency of other specified B group vitamins
CPT/HCPCS: 36415; 80053; 80061; 82607; 83735; G0103

== ENCOUNTER 2025-02-07 07:02 | Outpatient (CLI) | payer MEDICARE, BC, SELFPAY ==
--- OUTSIDE RECORDS SUMMARY | 2024-08-17 09:30 | XMS_ITS ---
[facility] [address] [place] [id number] Care Team Providers Care Case Reviewer Name Role Phone Cadence Lu Primary Care Provider Allergies No Known Allergies REASON FOR VISIT 6 month checkup and Annual Wellness Visit Medications Medication SIG (Take, Route, Frequency, Duration) Notes Start Date End Date Status Flomax 0.4 MG 2 cap(s) orally At Bed Time Active Potassium Chloride ER 20 MEQ 1 cap(s) or ally Twice a day Active Ciprofloxacin HCl 500 MG 1 tablet Orally Two times a day 07/26/2024 Active ALPRAZolam 0.5 MG 1 tab(s) orally qd prn 08/05/2023 Active Ezetimibe 10 mg TAKE ONE TABLET BY MOUTH ONCE DAILY; Duration: 90 Active Indomethacin 25 MG 1 cap(s) orally 3 times a day 11/01/2019 Active Aspir-Low 81 MG 1 tab(s) orally once daily Active Fish Oil 1000MG 1 TAB(S) P.O. DAILY Active POTASSIUM CITRATE, 454 G 5 ML ONCE DAILY Active Zetia 10 MG 1 tab(s) orally once a day Active Sildenafil Citrate 100 MG 1 tab(s) orall y once a day Active Vitamin B-12 1000 MCG 4 tablet Orally On ce a day Active Metoprolol Succinate ER 200 MG 1 tablet Once a day Active Lotrel 10-40 MG 1 cap(s) orally once daily Active hydroCHLOROthiazide 50 MG 1 tablet in th e morning Orally Once a day Active Problems Problem Type SNOMED Code ICD Code Onset Dates Problem Status W/U Status Risk Notes Problem BMI 35.0-35.9,ad ult (Z68.35) Active confirmed Vital Signs Blood pressure systolic 130 mm Hg 08/17/19 Blood pressure diastolic 78 mm Hg 025 Heart Rate 80 /min 08/17/2024 Height 65 in 08/17/2024 Weight 212.0 lbs 08/17/2024 BMI 35.27 kg/m2 08/17/2024 Encounters Encounter Location Date Provider Diagnosis 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 DAILY POTASSIUM CITRATE, 454 G 5 ML ONCE DAILY Zetia 10 MG 1 tab(s) orally once a day Metoprolol Succinate ER 200 MG 1 tablet Once a day Lotrel 10-40 MG 1 cap(s) orally once daily Treatment Notes Assessment Notes Adult general medical examination Patien t instructed to return to office Annually for Annual Wellness Visits to include annual screenings of Pain assessment, Functional Ability assessment, Cognitive Ability assessment, Fall Risk assessment, Depression screening and Bladder control screening. Next Appt Details Follow Up: 6 Months, Reason: Provider Name:Cadence Vazquez, 02/15/2025 10:30:00 AM, [address] [facility] [address], [place], [place], [id number], Progress Notes * SANTOS VELEZDOB: (69 yo M)Acc No.[id number]:08/17/2024 Physical Patient: SANTOS CHAVEZ Provider: Cadence Lu M.D. :1955 A ge:69 Y S ex:Male Date:08/17/2024 Address:[address] [place] [address], [id number] Subjective: * Chief Complaints: * 1 . 6 month checkup and Annual Wellness Visit. * HPI: H PI: Patient is here today for a scheduled check up and a Medicare Annual Wellness Visit. He had recent labs for review.. C ardiology: Blood pressure checks at home have been consistently normal. Denies : Chest Pain. D enies : Short of Breath. D enies : Palpitations. D enies : Leg Edema. 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 M ana maria Reproductive: He has been having some suprapubic and right lower quadrant discomfort and recent CT showed bladder stones and bilateral inguinal hernias. He had a recent visit with his urologist and discussed plans to perform cystoscopy to remove the bladder stones. This has not yet been scheduled. * ROS: O PTHALMOLOGY: Negative for d enies vision issues. * Medical History: H ypertension, Hyperlipidemia, Gout, Carcinoid of midgut, ? Gilbert's syndrome, Multiple kidney stones - Dr. Rodriguez, Bilateral inguinal hernias by CT scan. * Surgical History: c olonoscopy , partial ilium/colon resections for carcinoid 12/2010, colonoscopy 03/2017, prostrate biopsy 04/2017, Lithotripsy 08/2018, Colonoscopy - Dr. Dunn 11/2021, Lithotripsy 04/2022. * Hospitalization/Major Diagno stic Procedure: n one , Bladder Issues following Lithotripsy 04/2022. * Family History: F ather: 85 yrs, mild diabetic, CAD, of heart failure. M other: alive. * Social History: C URRENT TOBACCO USE S moking Status: Patient does NOT smoke. C affeine: yes, frequency:. Marital Status: . Occupation: Dentist. Past smoking status: no, Smoking status: Does not smoke. Recreational drug use: no. Alcohol: No. Sexually active: yes. * Medications: T aking Lotrel 10-40 MG Capsule 1 cap(s) orally once daily , Taking Metoprolol Succinate ER 200 MG Tablet Extended Release 24 Hour 1 tablet Once a day , Taking Fish Oil 1000MG 1 TAB(S) P.O. DAILY , Taking POTASSIUM CITRATE, 454 G 5 ML ONCE DAILY , Taking hydroCHLOROthiazide 50 MG Tablet 1 tablet in the morning Orally Once a day , Taking Vitamin B-12 1000 MCG Tablet 4 tablet Orally Once a day , Taking Sildenafil Citrate 100 MG Tablet 1 tab(s) orally once a day , Taking Aspir-Low 81 MG Tablet Delayed Release 1 tab(s) orally once daily , Taking Indomethacin 25 MG Capsule 1 cap(s) orally 3 times a day , Taking Potassium Chloride ER 20 MEQ Tablet Extended Release 1 cap(s) orally Twice a day , Taking Flomax 0.4 MG Capsule 2 cap(s) orally At Bed Time , Taking ALPRAZolam 0.5 MG Tablet 1 tab(s) orally qd prn , Taking Ciprofloxacin HCl 500 MG Tablet 1 tablet Orally Two times a day , Taking Ezetimibe 10 mg Tablet TAKE ONE TABLET BY MOUTH ONCE DAILY , Medication List reviewed and reconciled with the patient * Allergies: N .K.D.A. Objective: * Vitals: W t:212.0, Temp:97.5, BP:130/78, HR:80, O2 Sat:96% on RA, Nurse:meg, Ht: 65, BMI:35.27. * Examination: C ardiology: General Appearance: p leasant, NAD. 12 pound weight?gain noted. C arotid upstroke: n ormal, no bruits. H eart sounds: R RR, normal S1, S2. M urmur, click , gallop: n one. L ungs: c lear, no rales or wheezes. E xtremities: n o leg edema. Recent labs reviewed. Note slight increase in lipids likely related to weight gain. * Physical Examination: G ENERAL: Pain Assessment: P ain level: 0, on a scale of 0-10 (with 10 being extreme pain). F unctional Status Assessment: P atient response to question of how often physical health interferes with daily activities: . Almost never Able to perform ADLs-including meal preparation, grocery shopping, housework, laundry, taking medications or handling finances. Cognitive Status: alert and oriented. Ambulation Status: Fully ambulatory . F all Risk Assessment: I ndependant in ambulation, adequate lighting in home. Patient has NOT fallen or had trouble walking within the past 12 months. D epression Screening: D enies depressed mood or anxiety. Describes emotional health as: calm. B ladder Control Screening: D kusumies problems. Assessment: * Assessment: 1. A dult general medical examination - Z00.00 (Primary) 2 . V itamin B12 deficiency - E53.8 3 . M alignant carcinoid tumor of ileum - C7A.012 ?4. E ssential hypertension - I10 5 . D yslipidemia - E78.5 6. E ncounter for immunization - Z23 7 . K idney stones - N20.0 ? 8 . B VA 35.0-35.9,adult - Z68.35 Plan: * Treatment: 2. E ssential hypertension Refill Lotrel Capsule, 10-40 MG, 1 cap(s), orally, once daily, 90, Refills 1; R efill Metoprolol Succinate ER Tablet Extended Release 24 Hour, 200 MG, 1 tablet, Once a day, 90, Refills 1. ? 3. D yslipidemia Continue Fish Oil, 1000MG, 1 TAB(S), P.O., DAILY; R efill Zetia Tablet, 10 MG, 1 tab(s), orally, once a day, 90, Refills 1. 4. K idney stones Continue POTASSIUM CITRATE, 454 G, 5 ML, ONCE DAILY. * Procedure Codes: G 0439 ANNUAL WELLNESS VST; PPS SUBSQT VST, G0444 ANNUAL DEPRESSION SCREENING 15 MIN, 1090F PRES/ABSN URINE INCON ASSESS, 3288F FALL RISK ASSESSMENT DOCD, 1170F FXNL STATUS ASSESSED, 1126F AMNT PAIN NOTED NONE PRSNT, 1159F MED LIST DOCD IN RCRD, 1003F LEVEL OF ACTIVITY ASSESS, 1036F TOBACCO NON-USER, 3017F COLORECTAL CA SCREEN DOC REV, 4040F PNEUMOC IMM ORDER/ADMIN, G8510 NEG SCR Depression PT NOT ELIG F/U/PLN DOC, 3075F SYST BP GE 130 - 139MM HG, 3078F DIAST BP < 80 MM HG * Preventive Medicine: Counseling: E motional health: D iscussed ways to improve socialization. B ladder control: M ethods of controlling or managing leakage of urine discussed. E xercise: Patient advised to start, increase or maintain level of exercise/physical activity. I njury prevention: F all prevention discussed. Discussed need for cane/walker. Potential trip hazards discussed. Immunizations: T etanus u p to date. P neumococcal u p to date. I nfluenza u p to date. Screening / Special Tests: C olonoscopy R ecent history: 12/14/2021, diverticulosis, hemorrhoids, repeat 5 years. P SA , normal. * Follow Up: 6 Months * Images: Billing Information: * Visit Code: 52586 Office Visit, Est Pt., Level 3. Modifiers: 25 * Procedure Codes: G0439 ANNUAL WELLNESS VST; PPS SUBSQT VST. G0444 ANNUAL DEPRESSION SCREENING 15 MIN. 1090F PRES/ABSN URINE INCON ASSESS. 3288F FALL RISK ASSESSMENT DOCD. 1170F FXNL STATUS ASSESSED. 1126F AMNT PAIN NOTED NONE PRSNT. 1159F MED LIST DOCD IN RCRD. 1003F LEVEL OF ACTIVITY ASSESS. 1036F TOBACCO NON-USER. 3017F COLORECTAL CA SCREEN DOC REV. 4040F PNEUMOC IMM ORDER/ADMIN. G8510 NEG SCR Depression PT NOT ELIG F/U/PLN DOC. 3075F SYST BP GE 130 - 139MM HG. 3078F DIAST BP < 80 MM HG. * Electronic signature of Cadence Lu MD on 02/07/2025 at 07:06 AM EDT Sign off status: Pending * Provider: Cadence Lu M.D. Date: 0 08/17/2024 Generated for Garth sánchez/Christie/Rubina on: 0 02/07/2025 07:06 AM EDT History and Physical Notes * HPI (History of Present Illness) Category Sub-Category Detail Notes Category Not es Cardiology Short of Breath Chest Pain Palpitations Leg Edema HPI [facility]. He had recent labs for review. Physical Examination Category Sub-Category Detail Notes Section Note s GENERAL Pain Assessment: Pain level: 0, on a scale of 0-10 (with 10 being extreme pain) Functional Status Assessment: Patient response to question of how often physical health interferes with daily activities: . Almost never Able to perform ADLs-including meal preparation, grocery shopping, housework, laundry, taking medications or handling finances. Cognitive Status: alert and oriented. Ambulation Status: Fully ambulatory Fall Risk Assessment: Independant in amb ulation, adequate lighting in home. Patient has NOT fallen or had trouble walking within the past 12 months Depression Screening: Denies depressed m ood or anxiety. Describes emotional health as: calm Bladder Control Screening: Denies proble ms Examination Category Sub-Category Detail Notes Category Not es Cardiology Lungs: clear, no rales or wheezes Recent labs reviewed. Note slight increase in lipids likely related to weight gain Heart sounds: RRR, normal S1, S2 Carotid upstroke: normal, no bruits Extremities: no leg edema Murmur, click , gallop: none General Appearance: pleasant, NAD. 12 po und weight gain noted
--- OUTSIDE RECORDS SUMMARY | 2025-02-03 07:54 | XMS_ITS ---
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 ; Vitamin B12 deficiency E53.8 and Prostatic nodule N40.2 Assessments Encounter Date Diagnosis (ICD Code) Assessment Notes Treatment Notes Treatment Clinical Notes Section Notes 02/03/2025 Essential hypertension (ICD-10 - I10) 02/03/2025 Dyslipidemia (ICD-10 - E78.5) 02/03/2025 Malignant carcinoid tumor of ileum (ICD-10 - C7A.012) 02/03/2025 Vitamin B12 deficiency (ICD-10 - E53.8) 02/03/2025 Prostatic nodule (ICD-10 - N40.2) Plan Of Treatment Pending Test Test Name Order Date H-Lipid Panel 02/03/2025 H-CMP 02/03/2025 H-VITAMIN B12 02/03/2025 H-PSA 02/03/2025 Next Appt Details Provider Name:Cadence Vazquez, 02/15/2025 10:30:00 AM, [address] [facility], [place], [phone], Progress Notes * SANTOS VELEZDOB: 6 (69 yo M)Acc No.[id number]:02/03/2025 Patient: SANTOS CHAVEZ :1955 A ge:69 Y S ex:Male Address:[address] [place] [address], [place] [address] Subjective: * Chief Complaints: * * Medical History: * Surgical History: * Hospitalization/Major Diagno stic Procedure: * Medications: Objective: * Vitals: * Physical Examination: Assessment: * Assessment: 1. E ssential hypertension - I10 (Primary) 2 . D yslipidemia - E78.5 ? 3 . M alignant carcinoid tumor of ileum - C7A.012 4 . V itamin B12 deficiency - E53.8 5 . P rostatic nodule - N40.2 Plan: * Treatment: 2. D yslipidemia L AB: H-Lipid Panel L AB: H-CMP 3. V itamin B12 deficiency L AB: H-VITAMIN B12 4. P rostatic nodule L AB: H-PSA * Procedure Codes: * true * Date: Generated for Garth sánchez/Christie/eTdonaldsmitting on: 0 02/07/2025 07:06 AM EDT
--- OUTSIDE RECORDS SUMMARY | 2025-02-07 07:06 | XMS_ITS | Encounter Summary ---
Author Organization [facility] ([place], [place], [place], [place]) Address [address] [place] [address] Care Team Providers Care Electrocardiogram Technician Name Role Phone Luis Lu MD Primary Care Provider [phone] Reason for Referral * Diagnostic X-Ray (Routine) - Closed Specialty Diagnoses / Procedures Referred By Tammie braun Referred To Contact Diagnoses Abdominal pain, unspecified abdominal location Procedures X-ray abdomen KUB 1 view Ludwin Rodriguez Jr., MD [address] [place] [address] [address] [place] [address] Phone: tel: fax: Referral ID Status Reason Start Date Expiration Date Visits Re quested Visits Authorized [id number] Closed 08/09/2024 08/09/2025 1 1 Encounter Details Date Type Department Care Team (Late st Contact Info) Description 08/09/2024 Outside Orders [facility] [place] [facility] [address] [place] [address] [address] [place] [id number] Ludwin Rodriguez Jr., MD [address] [place] [address] [address] [place], [place] [id number] Abdominal pain, unspecified abdominal location (Primary Dx) Social History Tobacco Use Types Packs/Day Years Used Date Smoking Tobacco: Never Smokeless Tobacco: Never Alcohol Use Standard Drinks/Week Comments Never 0 (1 standard drink = 0.6 oz pur e alcohol) Food Insecurity Answer Date Recorded Food run out past 12 months Not on file 06/23 Food did not last past 12 months Not on file 07/11/2023 Employment Answer Date Recorded Help finding and keeping a job Not on file 0 07/11/2023 Family and Community Support Answer Freddy e Recorded Help with Day to Day Activities Not on file 07/11/2023 Feeling Lonely or Isolated Not on file 07/11 Educational Attainment Answer Date Herberth rded Speak language other than Latvian at home Not on file 07/11/2023 Want help with school or training Not on file 07/11/2023 Substance Use Answer Date Recorded Used prescription meds for non-medical reasons N ot on file 07/11/2023 Used illegal drugs past 12 months Not on file 07/11/2023 Sex and Gender Information Value Date Recorded Sex Assigned at Male 12/18/2021 8:28 PM CDT Legal Sex Male 8:28 PM CDT Gender Identity Male 12/18/2021 8:28 PM CDT Sexual Orientation Not on file documented as of this encounter Plan of Treatment Not on file documented as of this encounter Results * X-ray abdomen KUB 1 view (08/09/2024 11:01 AM EST) Anatomical Region Laterality Modality Abdomen X-Ray 08/09/2024 1:38 PM EST Impressions 08/09/2024 1:39 PM EST Questionable left nephrolithiasis. Images reviewed, interpreted, and dictated by Dr. Arturo Chung. Transcribed by Pattie Draper PA-C. Narrative 08/09/2024 1:39 PM EST SINGLE VIEW ABDOMEN HISTORY: Acute abdominal COMPARISON: January 2020 ABDOMEN: There is a nonspecific, nonobstructive bowel gas pattern. There are seminal vesicle calcifications noted. There may be a punctate stone overlying the lower pole left kidney. Procedure Note Arturo Chung MD - 08/09/2024 SINGLE VIEW ABDOMEN HISTORY: Acute abdominal COMPARISON: January 2020 ABDOMEN: There is a nonspecific, nonobstructive bowel gas pattern. There are seminal vesicle calcifications noted. There may be a punctate stone overlying the lower pole left kidney. IMPRESSION: Questionable left nephrolithiasis. Images reviewed, interpreted, and dictated by Dr. Arturo Chung. Transcribed by Pattie Draper PA-C. us Ludwin Rodriguez Jr., MD IMG DIAGNOSTIC IMAGING ORDERABLES Final Result documented in this encounter Visit Diagnoses Diagnosis Abdominal pain, unspecified abdominal location- Primary Abdominal pain, unspecified abdominal location documented in this encounter Care Teams Electrocardiogram Technician Relationship Specialty Start Date End Date Luis Lu MD [address] [place] [id number] PCP - General Family Medicine 04/25/22 documented as of this encounter
--- OUTSIDE RECORDS SUMMARY | 2025-02-07 07:06 | XMS_ITS | Patient Health Record ---
Author Organization [facility] Address [address] [place] [id number] Care Team Providers Care Rebrander Name Role Phone Cadence Lu Primary Care Provider Allergies No Known Allergies Results Component Value Reference Range Notes Urinalysis - Inhouse Reviewed date:07/29/2024 08:15:43 AM Interpretation: Performing Lab: Notes/Report: Color/Clarity yellow/clear Leuk 1+ Nitrite Neg Urobili 3.2 Protein Neg pH 8.0 Blood Neg Sp. Gr. 1.020 Ketone Neg Bili Neg Gluc Neg Urinalysis - Inhouse Reviewed date:07/28/2024 09:01:19 AM Interpretation: Performing Lab: Notes/Report: H-Lipid Panel Reviewed date:08/17/2024 03:16:24 PM Interpretation:trigs 161, chol 202, chol/hdl 4.2 Performing Lab: Notes/Report: Patient Fasting? Y TRIG 161 30-150 mg/dl CHOL 202 140-200 mg/dl DLDL 117.91 100-129 mg/dL VLDL 32 0-40 mg/dL HDL 48 40-60 mg/dl CHLHDL 4.2 1-3.5 H-CMP Reviewed date:08/17/2024 03:16:24 PM Interpretation:co2- 33, gluc 106, bili 2.8, a/g 2 Performing Lab: Notes/Report: NA 140 136-145 mmol/L K 3.7 3.5-5.1 mmoL/L CL 100 98-107 mmol/L CO2 33 22.0-30.0 mmol/L GAP 10.7 5-15 mEq/L BUN 15 9-20 mg/dl CREATT 1.10 0.66-1.25 mg/dl GFRAA 80 >60 ML/MIN EGFR 66 >60 ml/min GLU 106 74-100 mg/dl CA 9.6 8.4-10.2 mg/dl BILIT 2.8 0.2-1.3 mg/dl AST 39 17-59 U/L ALT 55 12-78 U/L TP 6.8 6.3-8.2 g/dl ALB 4.5 3.5-5.0 g/dl GLOB 2.3 1.3-3.2 g/dL AGRATIO 2.0 1.1-1.8 ALP 52 38-126 U/L H-Magnesium Reviewed date:08/17/2024 03:16:24 PM Interpretation:Normal Performing Lab: Notes/Report: MG 1.9 1.6-2.3 mg/dl H-VITAMIN B12 Reviewed date:08/17/2024 03:16:24 PM Interpretation:Normal Performing Lab: Notes/Report: VITB12 575 239-931 pg/mL H-PSA Reviewed date:08/17/2024 03:16:24 PM Interpretation:Normal Performing Lab: Notes/Report: PSASC 2.9 0.0-4.0 ng/ml CT Scan : Abd & Pelvis w/o c ontrast Reviewed date:12/02/2024 08:07:27 AM Interpretation:urinary bladder stones Performing Lab: Notes/Report: urinary bladder stones TEN-UTI panel Reviewed date:07/28/2024 09:01:32 AM Interpretation: Performing Lab: Notes/Report: TEN-UTI panel Reviewed date:08/02/2024 01:47:11 PM Interpretation:Negative Performing Lab: Notes/Report: Negative Reason For Referral No Information Medications Medication SIG (Take, Route, Frequency, Duration) Notes Start Date End Date Status Ezetimibe 10 mg TAKE ONE TABLET BY MOUTH ONCE DAILY; Duration: 90 Active hydroCHLOROthiazide 50 MG 1 tablet in th e morning Orally Once a day Active Fish Oil 1000MG 1 TAB(S) P.O. DAILY Active POTASSIUM CITRATE, 454 G 5 ML ONCE DAILY Active Zetia 10 MG 1 tab(s) orally once a day Active Flomax 0.4 MG 2 cap(s) orally At Bed Time Active Potassium Chloride ER 20 MEQ 1 cap(s) or ally Twice a day Active Ciprofloxacin HCl 500 MG 1 tablet Orally Two times a day 07/26/2024 Active ALPRAZolam 0.5 MG 1 tab(s) orally qd prn 08/05/2023 Active Sildenafil Citrate 100 MG 1 tab(s) orall y once a day Active Vitamin B-12 1000 MCG 4 tablet Orally On ce a day Active Metoprolol Succinate ER 200 MG 1 tablet Once a day Active Indomethacin 25 MG 1 cap(s) orally 3 times a day 11/01/2019 Active Lotrel 10-40 MG 1 cap(s) orally once daily Active Aspir-Low 81 MG 1 tab(s) orally once daily Active Immunizations Vaccine Route Administration Date Status Comme nts xFluzone Intradermal (18-64yrs)-trivalent ID Intradermal 03/21/2012 Administered xFlu shot- 6months-36 months of usk-WLCS-FWSM-trivalent Unknown 05/06/2024 Administered Tetanus Tdap-Adacel (over 7yrs) IM Intramuscular 08/10/2016 Administered Prevnar (PCV20) IM Intramuscular 08/08/2022 Administered PNEUMOVAX 23 VACCINE IM Intramuscular 01/22/2024 Administe red H1N1 flu vaccine IM Intramuscular 05/10/2009 Administered Fluzone PF Quad (6-35 months) Unknown 07/03/2022 Administered DT, 7 YEARS OR OLDER IM Intramuscular 08/09/2006 Administ ered COVID 19 Moderna Unknown 07/26/2020 Administered COVID 19 Moderna Unknown 05/09/2021 Administered Problems Problem Type SNOMED Code ICD Code Onset Dates Problem Status W/U Status Risk Notes Problem Vitamin B12 deficiency (489124135) Vitamin B12 deficiency (E53.8) Active confirmed Problem Essential hypertension (69007188) Essential hypertension (I10) Active confirmed Problem Male erectile disorder (639791783) Male erectile disorder (N52.9) Active confirmed Problem Obese class II (476082203406673 ) BMI 35.0-35.9,adult (Z68.35) Active confirmed Problem Sacroiliitis (28806210) Sacroiliitis (M46.1) Active confirmed Problem Kidney stone (13151557) Kidney stones (N20.0) Active confirmed Problem Body mass index 30.00 to 34.99 (607208200417003 ) BMI 34.0-34.9,adult (Z68.34) Active confirmed Problem 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 Problem Dyslipidemia (027998389) Dyslipidemia (E78.5) Active confirmed Problem Cardiac dysrhythmia (031303108) Cardiac dysrhythmia, unspecified (I49.9) Active confirmed Problem Gilbert's syndrome (47366584) 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) Active confirmed Problem Hard prostate (147203898) Prostatic nodule (N40.2) Active confirmed Problem Statin not tolerated (395145054) Statin intolerance (Z78.9) Active confirmed Problem History of cancer of ileum (Z85.068) Active confirmed Vital Signs Heart Rate 80 /min 08/17/2024 Blood pressure diastolic 78 mm Hg 08/17/2024 Height 65 in 08/17/2024 Blood pressure systolic 130 mm Hg 08/17/2024 Weight 212.0 lbs 08/17/2024 BMI 35.27 kg/m2 08/17/2024 Encounters Encounter Location Date Provider Diagnosis [facility] [address] [facility] [address] [place] [id number] 07/26/2024 R Rafa Lu Acute urinary tract infection N39.0 [facility] [address] [facility] [address] [place] [id number] 08/17/2024 R Rafa Lu Adult general medica l examination Z00.00 ; Vitamin B12 deficiency E53.8 ; Malignant carcinoid tumor of ileum C7A.012 ; Essential hypertension I10 ; Dyslipidemia E78.5 ; Encounter for immunization Z23 ; Kidney stones N20.0 and BMI 35.0-35.9,adult Z68.35 [facility] [address] [facility] [address] [place], [place] [id number] 07/19/2024 R Rafa Lu [facility] [address] [facility] [address] [place], [place] [id number] 07/26/2024 R Rafa Lu Acute UTI N39.0 [facility] [address] [facility] [address] [place] [id number] 08/03/2024 R Rafa Aguilarfleet Right lower quadrant abdominal pain R10.31 ; History of kidney stones Z87.442 ; Recurrent UTI N39.0 ; Right inguinal hernia K40.90 and Malignant carcinoid tumor of ileum C7A.012 [facility] [address] [facility] [place], [place] [id number] 08/09/2024 R Rafa Aguilarfleet Essential hypertensi on I10 ; Dyslipidemia E78.5 ; Malignant carcinoid tumor of ileum C7A.012 ; Vitamin B12 deficiency E53.8 and Prostatic nodule N40.2 [facility] [address] [facility] [address] [place] [id number] 02/03/2025 R Rafa Aly Essential hypertensi on I10 ; Dyslipidemia E78.5 ; Malignant carcinoid tumor of ileum C7A.012 ; Vitamin B12 deficiency E53.8 and Prostatic nodule N40.2 Assessments Encounter Date Diagnosis (ICD Code) Assessment Notes Treatment Notes Treatment Clinical Notes Section Notes 02/03/2025 Essential hypertension (ICD-10 - I10) 08/17/2024 Vitamin B12 deficiency (ICD-10 - E53.8) 02/03/2025 Dyslipidemia (ICD-10 - E78.5) 08/17/2024 Adult general medical examination (ICD-10 - Z00.00) Patient instructed to return to office Annually for Annual Wellness Visits to include annual screenings of Pain assessment, Functional Ability assessment, Cognitive Ability assessment, Fall Risk assessment, Depression screening and Bladder control screening. 08/09/2024 Essential hypertension (ICD-10 - I10) 08/09/2024 Dyslipidemia (ICD-10 - E78.5) 08/03/2024 Right lower quadrant abdominal pain (ICD-10 - R10.31) 07/26/2024 Acute urinary tract infection (ICD-10 - N39.0) 07/26/2024 Acute UTI (ICD-10 - N39.0) 08/03/2024 History of kidney stones (ICD-10 - Z87.442) 08/09/2024 Malignant carcinoid tumor of ileum (ICD-10 - C7A.012) 08/17/2024 Malignant carcinoid tumor of ileum (ICD-10 - C7A.012) 02/03/2025 Malignant carcinoid tumor of ileum (ICD-10 - C7A.012) 02/03/2025 Vitamin B12 deficiency (ICD-10 - E53.8) 08/17/2024 Essential hypertension (ICD-10 - I10) 08/09/2024 Vitamin B12 deficiency (ICD-10 - E53.8) 08/03/2024 Recurrent UTI (ICD-10 - N39.0) 08/17/2024 Dyslipidemia (ICD-10 - E78.5) 02/03/2025 Prostatic nodule (ICD-10 - N40.2) 08/09/2024 Prostatic nodule (ICD-10 - N40.2) 08/03/2024 Right inguinal hernia (ICD-10 - K40.90) 08/03/2024 Malignant carcinoid tumor of ileum (ICD-10 - C7A.012) 08/17/2024 Encounter for immunization (ICD-10 - Z23) 08/17/2024 Kidney stones (ICD-10 - N20.0) 08/17/2024 BMI 35.0-35.9,adult (ICD-10 - Z68.35) Plan Of Treatment Pending Test Test Name Order Date PSA 08/04/2021 H-CBC 01/31/2023 H-Lipid Panel 02/03/2025 H-CMP 02/03/2025 H-VITAMIN B12 02/03/2025 H-PSA 02/03/2025 Next Appt Details Provider Name:Cadence Vazquez, 02/15/2025 10:30:00 AM, [address] [facility], [address], [place], [place], [id number], Insurance Providers Payer Name Payer Address Payer Phone Subscriber Number Group Number Insured Name Patient Relationship to Insured Coverage Start Date Coverage End Date MEDICARE PART B [address] [address] [place] [id number] [phone] [id number] [place] Self - patient is the insured [employer] [facility] [address] [place] [address] [id number] [place] Self - patient is the insured Medical (General) History Medical History History ICD Code Hypertension hyperlipidemia Gout 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 Rodriguez Bilateral inguinal hernias by CT scan Surgical History Surgery Date(Month/Year) colonoscopy partial ilium/colon resections for carci noid 12/2010 colonoscopy 03/2017 prostrate biopsy 04/2017 Lithotripsy 08/2018 Colonoscopy - Dr. Dunn 11/2021 Lithotripsy 04/2022 Hospitalization History Reason Date(Month/Year) none Bladder Issues following Lithotripsy 2021
--- OUTSIDE RECORDS SUMMARY | 2025-02-07 07:06 | XMS_ITS | Encounter Summary ---
Author Organization [employer] ([place], [place], [place], [place]) Address [address] [place] [address] Care Team Providers Care Actor Understudy Name Role Phone Luis Lu MD Primary Care Provider [phone]- [phone] Reason for Referral * Diagnostic X-Ray (Routine) - Closed Specialty Diagnoses / Procedures Referred By Tammie braun Referred To Contact Diagnoses Calculus of kidney Procedures X-ray abdomen KUB 1 view Ludwin Rodriguez Jr., MD [address] [place] [address] [address] [place] [address] Phone: tel: fax: Referral ID Status Reason Start Date Expiration Date Visits Re quested Visits Authorized [id number] Closed 06/06/2022 12/03/2022 1 1 Encounter Details Date Type Department Care Team (Late st Contact Info) Description 06/06/[address] [facility] ([place], [place]) Diagnostic Imaging - [facility] [address] [place] [address] [address] [place] [phone] Ludwin Rodriguez Jr., MD [address] [place] [address] [address] [place] [address] Calculus of kidney (Primary Dx) Social History Tobacco Use Types Packs/Day Years Used Date Smoking Tobacco: Never Smokeless Tobacco: Never Alcohol Use Standard Drinks/Week Comments Never 0 (1 standard drink = 0.6 oz pur e alcohol) Sex and Gender Information Value Date Recorded Sex Assigned at Male 12/18/2021 8:28 PM CDT Legal Sex Male 8:28 PM CDT Gender Identity Male 12/18/2021 8:28 PM CDT Sexual Orientation Not on file documented as of this encounter Plan of Treatment Not on file documented as of this encounter Results * X-ray abdomen KUB 1 view (06/06/2022 11:41 AM EST) Anatomical Region Laterality Modality Abdomen X-Ray 06/06/2022 12:2 7 PM EST Impressions 06/06/2022 3:23 PM EST Probable bilateral nephrolithiasis. This could be better evaluated on noncontrast CT. Images reviewed, interpreted, and dictated by Dr. Ba Kiran. Transcribed by Hever Judd PA-C. Narrative 06/06/2022 3:23 PM EST SINGLE VIEW ABDOMEN HISTORY: Nephrolithiasis. FINDINGS: ABDOMEN: Single view of the abdomen demonstrates a nonspecific bowel gas pattern. There are densities projected over both kidneys measuring up to 7 mm. Procedure Note Ba Kiran MD - 06/06/2022 SINGLE VIEW ABDOMEN HISTORY: Nephrolithiasis. FINDINGS: ABDOMEN: Single view of the abdomen demonstrates a nonspecific bowel gas pattern. There are densities projected over both kidneys measuring up to 7 mm. IMPRESSION: Probable bilateral nephrolithiasis. This could be better evaluated on noncontrast CT. Images reviewed, interpreted, and dictated by Dr. Ba Kiran. Transcribed by Hever Judd PA-C. Ludwin Rodriguez Jr., MD IM DIAGNOSTIC IMAGING ORDERABLES Final Result documented in this encounter Visit Diagnoses Diagnosis Calculus of kidney- Primary Calculus of kidney documented in this encounter Care Teams Actor Understudy Relationship Specialty Start Date End Date Luis uL MD [address] [place], [place] [id number] PCP - General Family Medicine 04/25/22 documented as of this encounter
--- OUTSIDE RECORDS SUMMARY | 2025-02-07 07:06 | XMS_ITS | Referral Summary ---
Author Organization [employer] ([place], [place], [place], [place]) Address [address] [place] [address] Care Team Providers Care Airborne And Air Delivery Specialist Name Role Phone Luis Lu MD Primary Care Provider [phone]- [phone] Allergies No known active allergies Medications ezetimibe (ZETIA) 10 mg tablet Take 10 mg by mouth daily. 02/12/2022 Active hydroCHLOROthia zide (HYDRODIURIL) 50 MG tablet Take 50 mg by mouth daily. 01/29/2022 Active metoprolol succinate (TOPROL-XL) 200 MG 24 hr tablet Take 200 mg by mouth daily. 02/26/2022 Active omega-3 fatty acids-fish oil (Fish OiL) 340-1,000 mg Cap per capsule Take 1,280 mg by mouth. Active potassium chloride SA (K-DUR,KLOR-CON -M) 10 MEQ tablet Take 20 mEq by mouth 2 (two) times daily. Active citric acid-potassium citrate (POLYCITRA) 1,100-334 mg/5 mL solution Take 5 mLs by mouth 3 (three) times daily. 04/05/2022 Active amLODIPine-yimi zepriL (LotreL) 10-40 mg per capsule Take 1 capsule by mouth daily. Active cyanocobalamin (vitamin B-12) [address] 1,000 mg under the tongue 4 times weekly. Active ampicillin (PRINCIPEN) 500 MG capsule Take 500 mg by mouth 2 (two) times daily. 04/24/2022 Active Active Problems No known active problems Social History Tobacco Use Types Packs/Day Years [...] Date Herberth rded Speak language other than Azerbaijani at home Not on file 07/11/2023 Want [...] PM CDT Sexual Orientation Not on file Last Filed Vital Signs Vital Sign Reading Time Taken Comments Blood Pressure 144/81 04/25/2022 9:56 AM EDT Pulse 66 04/25/2022 9:56 AM EDT Temperature 36.4 C (97.5 F) 04/25/2022 9:41 AM EDT Respiratory Rate 16 04/25/2022 9:56 AM EDT Oxygen Saturation 97% 04/25/2022 9:56 AM EDT Inhaled Oxygen Concentration - - Weight - - Height - - Body Mass Index - - Plan of Treatment Not on file Insurance MEDICARE PART [place] [address] [address] [place] [address] [facility] Care Teams Airborne And Air Delivery Specialist Relationship Specialty Start Date End Date Luis Lu MD [address] [place] [id number] PCP - General Family Medicine 04/25/22
--- OUTSIDE RECORDS SUMMARY | 2025-02-07 07:06 | XMS_ITS | Encounter Summary ---
[facility] Address [address] [place] [address] Care Team Providers Care Peanut Separator Name Role Phone Luis Lu MD Primary Care Provider Encounter Details Date Type Department Care Team (Late st Contact Info) Description 02/19/2012 Conversion Encounter [facility] HISTORICAL CONV [address] [place] [address] Interface, See Report Social History Tobacco Use Types Packs/Day Years Used Date Smoking Tobacco: Never Assessed Sex and Gender Information Value Date Recorded Sex Assigned at Not on file Legal Sex Male 11:04 AM EDT Gender Identity Not on file Sexual Orientation Not on file documented as of this encounter H&P Notes * Interface, See Report - 02/19/2012 10:16 AM EDT Omid Harvey M.D. ' Ada Naqvi M.D. ' Robert Manriquez M.D. ' ARLEN Chen M.D. ' Firas [place], Slick Patel APRN [address], [address] [place] [address] [employer] NEW PATIENT EVALUATION SANTOS VELEZ : 1955 DATE OF VISIT: 02/19/2012 PHYSICAL EXAM: GENERAL: He is a healthy-appearing, adult male who seems comfortable. VITAL SIGNS: He is 67.5 inches tall, weight was 185. Blood pressure 168/98. Temperature 97, respirations 16, pulse 86. HEENT: Sclerae are anicteric. Extraocular movements intact. Pupils equal, round, reactive to light. Oral mucosa is pink without ulcers or trent. NECK: No masses or thyroid abnormalities. HEART: Regular rhythm and rate. LUNGS: No rub, crackles or wheezes. ABDOMEN: Soft without masses or organomegaly. I cannot feel a fluid wave. His incision has healed well. EXTREMITIES: Without edema or cords. Joints had no erythema or effusion. SKIN: No rashes or purpura. LYMPH: I cannot feel any cervical, supraclavicular or axillary lymph nodes. NEUROLOGIC: He is alert and answers all questions appropriately. He moves all extremities normally. He has a normal gait and station. LABS: His path report from 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 His prior CT scans including the most recent scan from May 2011 were reviewed with no evidence of recurrent carcinoid. SANTOS VELEZ : 1955 DATE OF VISIT: 02/19/2012 IMPRESSION: 1. 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 He did have lymph node involvement. He has not had any clinical findings or symptoms to suggest metastatic disease except for some mild chronic diarrhea since the surgery. PLAN: 1. I will repeat a CT scan. While this is slightly more than some of the NCCN guidelines I think this is appropriate in someone who would be a candidate for either further surgery or other local therapies. 2. I will not repeat 5HIAA or chromogranin A since the mild elevation of these without CT scan changes probably would not change my clinical plan. 3. I have reviewed with him in detail and answered several questions for Dr. Coleman and his about the natural history of carcinoid, the plan for monitoring, etc. and I have answered their questions as fully as possible and they seem to understand all this very well. 4. I will see him back in a few months with a repeat CT scan. 5. I will ask them to get me copies of the labs when they are done with Dr. Lu. Ada Naqvi M.D.* ABDON/best Doc. ID [id number] Rev. #0 cc: Efren Dunn II, M.D.* Emanuel Menendez M.D.* Nidia Lu M.D.* Page 2 of 2 Page 1 of 2 Authenticated by ADA NAQVI M.D. On 02/20/2012 05:19:50 PM * Interface, See Report - 02/19/2012 10:16 AM EDT Omid Harvey M.D. ' Ada Naqvi M.D. ' Robert Manriquez M.D. ' ARLEN Chen M.D. ' Oscar Madrigal M.D. ' Nancy Patel APRN [facility], [facility] [address] [place] [address] [employer] NEW PATIENT EVALUATION SANTOS VELEZ : 1955 DATE OF VISIT: 02/19/2012 PROBLEM LIST: 1. Stage IIIB low-grade carcinoid tumor. A. Status post right colon resection 12/26/2010 with 1.7 x 1.5 well differentiated tumor with 4/13 lymph nodes positive. B. Post resection colonoscopy 01/08/2012 negative for recurrence. HISTORY OF PRESENT ILLNESS: Mr. Velez is a pleasant and overall healthy 56-year-old male who presents today for further evaluation and recommendations in regards to his history of carcinoid tumor originally diagnosed in 11/2010 from a routine colonoscopy. He was noted to have an irregular shaped mass at the ileocecal valve during a colonoscopy per Dr. Dunn. He was then sent for a colon resection per Dr. Menendez which he tolerated very well. He was diagnosed with the above tumor and post resection has done very well. However, he has been left with some dumping diarrhea symptoms typically one bowel movement which is loose daily depending particular food intake. Denies any nausea, vomiting, unintentional weight loss or flushing or obvious signs of disease recurrence or carcinoid syndrome. PAST MEDICAL/SURGICAL HISTORY: Hypertension; as mentioned above, includes wisdom tooth extraction. ALLERGIES: No known drug allergies. CURRENT MEDICATIONS: Zetia, fish oil, aspirin and multivitamins. FAMILY HISTORY: Mother is currently liver at 88; father is age 85 of heart disease. SANTOS VELEZ : 1955 DATE OF VISIT: 02/19/2012 SOCIAL HISTORY: His accompanies him today. He has several children and they are grandparents. He works as a dentist. He has never smoked. Denies alcohol intake on a regular basis. REVIEW OF SYSTEMS: As mentioned above, including: GENERAL: Denies any fever or recent signs of infection or unintentional weight loss. HEENT: Denies any recurrent nose bleed, oral mucosa changes or irritation. SKIN: Denies any rash or petechiae. CARDIAC: Denies any chest pains or palpitations. LUNGS: Denies shortness of breath, cough, or dyspnea on exertion. Denies any lower extremity swelling. GASTROINTESTINAL: Diarrhea as mentioned above. Denies any melena or hematochezia, recent colonoscopy as documented above. GENITOURINARY: Denies any dysuria, hematuria. NEUROLOGICAL: He does have occasional dizziness, but he relates this to probable inner ear or difficulty which is improved with meclizine and time. He has also had some decreased short-term memory loss. MUSCULOSKELETAL: He does have joint stiffness, particularly in the morning but no particular redness at one particular joint area or swelling. COMPLETION: Per Dr. Ada Naqvi: PHYSICAL EXAM: GENERAL: He is a healthy-appearing, adult male who seems comfortable. VITAL SIGNS: He is 67.5 inches tall, weight was 185. Blood pressure 168/98. Temperature 97, respirations 16, pulse 86. HEENT: Sclerae are anicteric. Extraocular movements intact. Pupils equal, round, reactive to light. Oral mucosa is pink without ulcers or trent. NECK: No masses or thyroid abnormalities. HEART: Regular rhythm and rate. LUNGS: No rub, crackles or wheezes. ABDOMEN: Soft without masses or organomegaly. I cannot feel a fluid wave. His incision has healed well. EXTREMITIES: Without edema or cords. Joints had no erythema or effusion. SKIN: No rashes or purpura. LYMPH: I cannot feel any cervical, supraclavicular or axillary lymph nodes. NEUROLOGIC: He is alert and answers all questions appropriately. He moves all extremities normally. He has a normal gait and station. SANTOS VELEZ : 1955 DATE OF VISIT: 02/19/2012 LABS: His path report from 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 His prior CT scans including the most recent scan from May 2011 were reviewed with no evidence of recurrent carcinoid. IMPRESSION: 1. 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 He did have lymph node involvement. He has not had any clinical findings or symptoms to suggest metastatic disease except for some mild chronic diarrhea since the surgery. PLAN: 1. I will repeat a CT scan. While this is slightly more than some of the NCCN guidelines I think this is appropriate in someone who would be a candidate for either further surgery or other local therapies. 2. I will not repeat 5HIAA or chromogranin A since the mild elevation of these without CT scan changes probably would not change my clinical plan. 3. I have reviewed with him in detail and answered several questions for Dr. Coleman and his about the natural history of carcinoid, the plan for monitoring, etc. and I have answered their questions as fully as possible and they seem to understand all this very well. 4. I will see him back in a few months with a repeat CT scan. 5. I will ask them to get me copies of the labs when they are done with Dr. Lu. Doreen Birmingham APRN* Ada Naqvi M.D. aw/rxronak; RME/rxdrs Doc. ID [id number]; [id number] Rev. #1 cc: Efren Dunn II, M.D.* Emanuel Menendez M.D.* Nidia Lu M.D.* Page 3 of 3 Page 1 of 3 Authenticated by DOREEN BIRMINGHAM APRN On 02/21/2012 11:18:51 AM * Interface, See Report - 02/19/2012 10:16 AM EDT Omid Harvey M.D. ' Ada Naqvi M.D. ' Robert Manriquez M.D. ' ARLEN Chen M.D. ' Roscoe Del Toro M.D. ' Oscar Madrigal M.D. ' Nancy Patel APRN [facility], [facility] [address] [place] [id number] [employer] OFFICE NOTE SANTOS VELEZ : 1955 DATE OF VISIT: 05/22/2012 PROBLEM LIST: 1. Resected carcinoid tumor of the ileocecal area. 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 He has not had any unexplained weight loss. His blood pressure has increased and he is on Bystolic now as an additional medication. REVIEW OF SYSTEMS: As in present illness. No abdominal distention, itching or jaundice. PHYSICAL EXAM: GENERAL: He is comfortable appearing. VITAL SIGNS: Blood pressure was 187/95 with electronic cuff. HEENT: Sclerae anicteric. Oral mucosa normal. HEART: Regular rhythm and rate. LUNGS: No rub, crackles or wheezes. ABDOMEN: Soft without masses or organomegaly. EXTREMITIES: Without edema or cords. NODES: There were no lymph nodes felt. LABS: A CT scan done showed no evidence of recurrent cancer. His CBC and CMP done 05/04 were all acceptable. Potassium was mildly decreased at 3.5. IMPRESSION: Resected carcinoid tumor of the colon. This was from the ileocecal area. He has not had any evidence of recurrence. SANTOS VELEZ : 1955 DATE OF VISIT: 05/22/2012 PLAN: 1. I have suggested that we repeat a CT scan in six months and go to yearly scans after that. 2. We will follow his liver enzymes. 3. I will not plan to do biochemical marker surveillance. Ada Naqvi M.D.* RME/rxalw Doc. ID [id number] Rev. #0 cc: Efren Dunn II, M.D.* Emanuel Menendez M.D.* Nidia Lu M.D.* Page 2 of 2 Page 1 of 2 Authenticated by ADA NAQVI M.D. On 05/26/2012 10:24:41 PM * Interface, See Report - 02/19/2012 10:16 AM EDT Omid Harvey M.D. ' Ada Naqvi M.D. ' Robert Manriquez M.D. ' ARLEN Chen M.D. ' Roscoe Del Toro M.D. ' Oscar Madrigal M.D. ' Nancy Patel APRN [address] [place] [address], [facility] [address] [place] [address] [employer] OFFICE NOTE SANTOS VELEZ : 1955 DATE OF VISIT: 11/13/2012 PROBLEM LIST: 1. Resected carcinoid tumor. A. Ileocecal primary. B. 4 of 13 lymph nodes involved, completely resected. HISTORY: Mr. Velez has generally done well since his last visit. He has not had any flushing or wheezing or other symptoms of carcinoid syndrome. He has not had any abdominal pain or distention to suggest recurrent cancer. He has not had any recent medication changes. MEDICATIONS: Medication reconciliation for the patient was reviewed in the electronic medical record. REVIEW OF SYSTEMS: As in the present illness. No cough or wheezing, jaundice, unexplained weight loss, rashes or itching. PHYSICAL EXAM: GENERAL: He is comfortable appearing. HEENT: Sclerae are anicteric. Oral mucosa is normal. HEART: Regular rhythm and rate. LUNGS: No rub, crackles or wheezes. ABDOMEN: Soft without masses or organomegaly. EXTREMITIES: Without edema or cords. NODES: There were no lymph nodes felt. LABS: His CT scan done 11/11 did not show any evidence of metastatic renal cell cancer. He did have some small kidney stones noted on both sides. His creatinine was normal at 1.1 with ALT mildly elevated at 42, AST normal at 28 with a normal alkaline phosphatase. Bilirubin was 2.5. This is similar to prior values and is presumed to be from Gillaure's IMPRESSION: Resected carcinoid tumor. He does not have any evidence of recurrence. PLAN: I will check a chromogranin A level. While this can have false-positive results, I think it is now felt to be a useful marker. I have reviewed with him and his the rationale for this and the potential for false alarms. If these are acceptable I will see him back in six months with repeat CT scan. We will plan to repeat his labs then. He will keep his regular followup with his other physicians. Ada Naqvi M.D.* RMRadha/rxblt Doc. ID [id number] Rev. #0 cc: Efren Dunn II, M.D.* Emanuel Menendez M.D.* Nidia Lu M.D.* SANTOS VELEZ : 1955 DATE OF VISIT: 11/13/2012 Page 2 of 2 Page 1 of 2 DOCUMENT CODE :[facility]: PHYSICIAN CODE :98801: Authenticated by ADA NAQVI M.D. On 11/22/2012 04:02:06 PM * Interface, See Report - 02/19/2012 10:16 AM EDT Omid Harvey M.D. ' Ada Naqvi M.D. ' Robert Manriquez M.D. ' Slick Martinez M.D. ' Adelaida Slade M.D. ' Nancy Patel APRN ' Irma Hyatt APRN [facility], [facility] [address] [place] [address] [facility] OFFICE NOTE SANTOS VELEZ : 1955 DATE OF VISIT: 05/06/2013 PROBLEM LIST: 1. Resected carcinoid tumor. a. Ileocecal primary. b. 4 out of 13 lymph nodes involved completely resected. 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 He does report over the past few days he has had increased left ear pain, but no other symptoms related. He denies fevers chills, night sweats, cough, or dyspnea. He also denies any abdominal pain or distention. MEDICATIONS: Medication reconciliation for the patient was reviewed in the electronic medical record. REVIEW OF SYSTEMS: As in the present illness. No chest pain, palpitations, orthopnea, jaundice, unexplained weight loss, rash, itching, dysuria, hematuria, constipation, diarrhea, or melena. PHYSICAL EXAM: GENERAL: He is comfortable appearing. HEENT: Sclerae are anicteric. Oral mucosa is normal. Bilateral external ear canals are erythematous, but tympanic membranes are pearly connelly. No fluid bulge noted. HEART: Regular rhythm and rate. LUNGS: Clear to auscultation bilaterally. No rubs, crackles or wheezes. ABDOMEN: Soft without masses or organomegaly. EXTREMITIES: Without edema or cords. NODES: There were no lymph nodes felt. LABORATORY DATA: Chromogranin A level from 11/13/2012 was 3. Lab results from 05/05/2013: Glucose 89, BUN 16, creatinine 1.1, sodium 146, potassium 3.6, chloride 106, carbon dioxide 29, total bilirubin 1.8. CT scan of the abdomen and pelvis with IV and oral contrast on 05/05/2013: Nonobstructing renal stones. Over the interval since previous examination of six months 11/11/2012 stones have been passed from the bladder and the bladder is now clear. Visceral tumor, adenopathy, or mesenteric tumor is not currently identified. Signs of recurrent carcinoid tumor are not appreciated. COMPLETION: Per Dr. Ada Naqvi: IMPRESSION: Carcinoid tumor without evidence of recurrence. He does not have any findings of recurrence physical or on CT scan. He does have any symptoms of recurrence. PLAN: 1. We will check his chromogranin A level along with a CBC today. If these are acceptable I will see him back in six months to repeat his physical exam and labs. 2. I will plan to do CT scans only once a year unless he has new symptoms or physical findings in the interim. 3. If his chromogranin A level goes up then we will investigate further. Irma Hyatt NP* Ada Naqvi M.D. SA/rxalw; RME/rxalw Doc. ID [id number] Rev. #1 cc: Efren Dunn II, M.D.* Emanuel Menendez M.D.* Nidia Lu M.D.* AGUSTINSANTOS : 1955 DATE OF VISIT: 05/06/2013 Page 2 of 2 Page 1 of 2 DO NOT TEXT EDIT THIS LINE :[id number]: Authenticated by IRMA HYATT APRN On 05/07/2013 03:13:58 PM documented in this encounter Plan of Treatment Not on file documented as of this encounter Visit Diagnoses Not on filedocumented in this encounter Additional Health Concerns Infection Onset Date Last Indicated Resolved Time COVID Screen (preop/placement) 10/04/2020 10/04/2020 10/04/2020 2:48 PM EDT documented as of this encounter Care Teams Peanut Separator Relationship Specialty Start Date End Date Luis Lu MD [facility] [address] [facility] [address] [place] [id number] PCP - General Family Medicine 05/13/16 documented as of this encounter
--- OUTSIDE RECORDS SUMMARY | 2025-02-07 07:06 | XMS_ITS | Clinical Summary ---
Author Organization [facility] [employer] [facility] Address [address] [place] [address] Care Team Providers Care Professor In Family Studies Name Role Phone Luis Lu MD Primary Care Provider Allergies No known active allergies Medications ALPRAZolam (XANAX) 0.5 MG tablet Take 0.5 mg by mouth As Needed. 6 Active amLODIPine-yimi zepril (LOTREL) 10-40 MG per capsule Take 1 capsule by mouth Daily. 6 Active ZETIA 10 MG tablet Take 10 mg by mouth Daily. 6 Active hydroCHLOROthia zide (HYDRODIURIL) 50 MG tablet Take 50 mg by mouth Daily. 6 Active metoprolol succinate XL (TOPROL-XL) 200 MG 24 hr tablet Take 200 mg by mouth Daily. 6 Active [place]-3 Fatty Acids (FISH OIL) 1000 MG capsule capsule Take 1,280 mg by mouth Daily With Breakfast. Active tamsulosin (FLOMAX) 0.4 MG capsule 24 hr capsule Take 1 capsule by mouth Daily. Active Cyanocobalamin (VITAMIN B-12) [address] 1 tablet under the tongue 3 (Three) Times a Week. Active indomethacin (INDOCIN) 25 MG capsule Take 25 mg by mouth 3 (Three) Times a Day As Needed for Mild Pain . Active potassium chloride (K-DUR,KLOR-CON ) 10 MEQ CR tablet Take 20 mEq by mouth 2 (Two) Times a Day. Active oxymetazoline (AFRIN) 0.05 % nasal spray 2 sprays into the nostril(s) as directed by provider As Needed for Congestion. Active Melatonin 3 MG capsule Take 1 capsule by mouth Every Night. Active aspirin 81 MG EC tablet Take 81 mg by mouth Daily. 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 Family History Medical History Relation Name Comments Heart disease Father Rafal Heart failure Father Rafal Hyperlipidemia Father Rafal Hypertension Father Rafal Arrhythmia Mother Cate Fainting Mother Cate Hyperlipidemia Mother Cate Hypertension Mother Cate Stroke Mother Cate Relation Name Status Comments Father Rafal Mother Cate Social History Tobacco Use Types Packs/Day Years Used Date Smoking Tobacco: Never Smokeless Tobacco: Never Alcohol Use Standard Drinks/Week Comments Not Currently 0 (1 standard drink = 0.6 oz pur e alcohol) Occ Abuse Screen Answer Date Recorded Unsafe at Home or Work/School Not on file Feels Threatened by Someone? Not on file 02/2023 Does Anyone Keep You from Co ntacting Others or Doint Things Outside the Home? Not on file 03/31/2023 Physical Sign of Abuse Present Not on file 1 Housing Stability Answer Date Recorded Current Living Arrangements Not on file 02/2023 Potentially Unsafe Housing Conditions Not on bruce e 03/31/2023 Family and Community Support Answer Freddy e Recorded Help with Day-to-Day Activities Not on file 03/31/2023 Lonely or Isolated Not on file 03/31/2023 Employment Answer Date Recorded Do you want help finding or keeping work or a noah b? Not on file 03/31/2023 Disabilities Answer Date Recorded Concentrating, Remembering, or Making Decisions Difficulty Not on file 03/31/2023 Doing Errands Independently Difficulty Not on fi le 03/31/2023 Education Answer Date Recorded Help with school or training? Not on file Preferred Language Not on file 03/31/2023 Sex and Gender Information Value Date Recorded Sex Assigned at Not on file Legal Sex Male 11:04 AM EDT Gender Identity Not on file Sexual Orientation Not on file Last Filed Vital Signs Vital Sign Reading Time Taken Comments Blood Pressure 138/60 10/23/2021 10:28 AM EDT Pulse 78 10/23/2021 10:28 AM EDT Temperature 37 C (98.6 F) 10/23/2018 12:30 PM EDT Respiratory Rate 16 10/23/2018 12:30 PM EDT Oxygen Saturation 97% 10/23/2021 10:28 AM EDT Inhaled Oxygen Concentration - - Weight 87.5 kg (193 lb) 10/23/2021 10:28 AM EDT Height 165.1 cm (5' 5 ) 10/23/2021 10:28 AM EDT Body Mass Index 32.12 10/23/2021 10:28 AM EDT Plan of Treatment Health Maintenance Due Date Last Done Comments COLOGUARD 2000 COLON CANCER SCREENING 5 YEA R SIGMOIDOSCOPY 2000 COLONOSCOPY 2000 COLORECTAL CANCER SCREENING 2000 CT COLONOGRAPHY 2000 FECAL OCCULT BLOOD TEST 2000 FIT Testing (1 year) 2000 Pneumococcal Vaccine 50+ (1 of 1 - PCV) 2005 ZOSTER VACCINE (1 of 2) 2005 TDAP/TD VACCINES (2 - Tdap) 08/29/2006 08/29/1996 ANNUAL PHYSICAL 09/14/2020 HEPATITIS C SCREENING 09/14/2020 COVID-19 Vaccine (1 - season) 2024 INFLUENZA VACCINE 03/23/2025 AAA SCREEN ONCE Completed 05/15/2016, 04/24, 05/25/2014 Procedures Procedure Name Priority Date/Time Associated Diagnosis Comments CT ABDOMEN PELVIS W CONTRAST Routine 05/15/2016 2:35 PM EST Carcinoid tumor from Last 3 Months or Most Recently Relevant to Health Maintenance Results * CT abdomen pelvis w contrast (05/15/2016 2:35 PM EST) Anatomical Region Laterality Modality Abdomen, Pelvis N/A Computed Tomogra phy 05/15/2016 6:19 PM EST Impressions 05/17/2016 8:49 AM EST Stable examination. Calcifications again seen at the base of the bladder with nonobstructing stone in the right kidney. No evidence of metastatic disease or recurrence. DICTATED: 05/15/2106 EDITED: 05/15/2016 This report was finalized on 05/17/2016 8:[address] Sandy Crandall MD. Narrative 05/17/2016 8:49 AM EST EXAMINATION: CT ABDOMEN PELVIS W/CONTRAST - 05/15/2016 INDICATION: D3A.00-Benign carcinoid tumor of unspecified site. Follow-up. TECHNIQUE: Multiple axial CT imaging was obtained of the abdomen and pelvis from the lung bases to the pubic symphysis following the administration of oral and intravenous contrast. The radiation dose reduction device was turned on for each scan per the ALARA (As Low as Reasonably Achievable) protocol. COMPARISON: 05/17/2015. FINDINGS: ABDOMEN: The lung bases are grossly clear. Liver is homogeneous in appearance. Small stone seen in the gallbladder. The spleen is unremarkable with some small calcifications suggesting old healed granulomatous disease. There are parapelvic cysts seen in the left kidney. Nonobstructing stone seen in the right kidney. Adrenal glands are both unremarkable. The pancreas is homogeneous. No abdominal or retroperitoneal lymphadenopathy. No free fluid or free air. No abnormal mass or fluid collections identified. PELVIS: The pelvic organs are unremarkable. The pelvic portion of the gastrointestinal tract is within normal limits. Stones seen at the base of the bladder. No pelvic adenopathy. No abnormal mass or fluid collections identified. No evidence of metastatic disease. Bony structures reveal degenerative changes seen within the spine and pelvis. Procedure Note Sandy Crandall MD - 05/17/2016 EXAMINATION: CT ABDOMEN PELVIS W/CONTRAST - 05/15/2016 INDICATION: D3A.00-Benign carcinoid tumor of unspecified site. Follow-up. TECHNIQUE: Multiple axial CT imaging was obtained of the abdomen and pelvis from the lung bases to the pubic symphysis following the administration of oral and intravenous contrast. The radiation dose reduction device was turned on for each scan per the ALARA (As Low as Reasonably Achievable) protocol. COMPARISON: 05/17/2015. FINDINGS: ABDOMEN: The lung bases are grossly clear. Liver is homogeneous in appearance. Small stone seen in the gallbladder. The spleen is unremarkable with some small calcifications suggesting old healed granulomatous disease. There are parapelvic cysts seen in the left kidney. Nonobstructing stone seen in the right kidney. Adrenal glands are both unremarkable. The pancreas is homogeneous. No abdominal or retroperitoneal lymphadenopathy. No free fluid or free air. No abnormal mass or fluid collections identified. PELVIS: The pelvic organs are unremarkable. The pelvic portion of the gastrointestinal tract is within normal limits. Stones seen at the base of the bladder. No pelvic adenopathy. No abnormal mass or fluid collections identified. No evidence of metastatic disease. Bony structures reveal degenerative changes seen within the spine and pelvis. IMPRESSION: Stable examination. Calcifications again seen at the base of the bladder with nonobstructing stone in the right kidney. No evidence of metastatic disease or recurrence. DICTATED: 05/15/2106 EDITED: 05/15/2016 This report was finalized on 05/17/2016 8:[address] Sandy Crandall MD. Irma Hyatt APRN IMG CT ORDERABLES Final Re sult from Last 3 Months or Most Recently Relevant to Health Maintenance Insurance MEDICARE A & B [facility] Member Subscriber Plan / Payer (Ef fective 2020-Present) Name:Valentin Yair Jessica Relation to Subscriber:Self Name:Yair Valentin Jessica Payer ID:[id number] (NAIC) Group ID:[id number] Type:MEDICARE SUPPLEMENT Address: [address] [place] [id number] Care Teams Professor In Family Studies Relationship Specialty Start Date End Date Luis Lu MD [address] [id number] [address] [facility] [address] [place] [id number] PCP - General Family Medicine 05/13/16
--- OUTSIDE RECORDS SUMMARY | 2025-02-07 07:06 | XMS_ITS ---
Author Organization Unknown [facility] Start Date Provider Encounter for Check-up [id number] [facility]
--- OUTSIDE RECORDS SUMMARY | 2025-02-07 07:06 | XMS_ITS | Encounter Summary ---
Author Organization [employer] ([place], [place], [place], [place]) Address [address] [place] [address] Care Team Providers Care Dredge Operator Name Role Phone Luis Lu MD Primary Care Provider +1- [phone] Reason for Referral * Diagnostic X-Ray (Emergency) - Closed Specialty Diagnoses / Procedures Referred By Tammie braun Referred To Contact Diagnoses Calculus of kidney Procedures X-ray abdomen KUB 1 view Ludwin Rodriguez Jr., MD [address] [place] [address] [address] [place] [address] Phone: tel: fax: Referral ID Status Reason Start Date Expiration Date Visits Re quested Visits Authorized [id number] Closed 08/13/2023 02/09/2024 1 1 Encounter Details Date Type Department Care Team (Late st Contact Info) Description 08/13/2023 Outside Orders [facility] Diagnostic Imaging - [place] [facility] [place] [address] [place] [address] [address] [place] [address] [phone] Ludwin Rodriguez Jr., MD [address] [place] [address] [address] [place] [address] Calculus of kidney (Primary Dx) Social History [...] Date Herberth rded Speak language other than Danish at home Not on file 07/11/2023 Want [...] Results * X-ray abdomen KUB 1 view (08/13/2023 12:33 PM EST) Anatomical Region Laterality Modality Abdomen X-Ray 08/13/2023 3:41 PM EST Impressions 08/13/2023 4:53 PM EST No acute process. Images reviewed, interpreted, and dictated by Dr. Gillian Contreras. Transcribed by Pattie June PA-C. Narrative 08/13/2023 4:53 PM EST SINGLE VIEW ABDOMEN HISTORY: Nephrolithiasis COMPARISON: May 2022 ABDOMEN: There is a nonspecific, nonobstructive bowel gas pattern. There are no renal stones visualized on today's exam. The pelvic calcifications are stable. No acute osseous abnormality. Procedure Note Gillian Contreras MD - 08/13/2023 SINGLE VIEW ABDOMEN HISTORY: Nephrolithiasis COMPARISON: May 2022 ABDOMEN: There is a nonspecific, nonobstructive bowel gas pattern. There are no renal stones visualized on today's exam. The pelvic calcifications are stable. No acute osseous abnormality. IMPRESSION: No acute process. Images reviewed, interpreted, and dictated by Dr. Gillian Contreras. Transcribed by Pattie June PA-C. us Ludwin Rodriguez Jr., MD IM DIAGNOSTIC IMAGING ORDERABLES Final Result documented in this encounter Visit Diagnoses Diagnosis Calculus of kidney- Primary Calculus of kidney documented in this encounter Care Teams Dredge Operator Relationship Specialty Start Date End Date Luis Lu MD [address] [place] [phone] PCP - General Family Medicine 04/25/22 documented as of this encounter
--- OUTSIDE RECORDS SUMMARY | 2025-02-07 07:06 | XMS_ITS | Encounter Summary ---
Author Organization [employer] ([place], [place], [place], [place]) Address [address] [place] [address] Care Team Providers Care Mixing Place Supervisor Name Role Phone Luis Lu MD Primary Care Provider +1- [phone] Reason for Referral * Diagnostic X-Ray (Emergency) - Closed Specialty Diagnoses / Procedures Referred By Tammie braun Referred To Contact Diagnoses Calculus of kidney Procedures X-ray abdomen KUB 1 view Ludwin Rodriguez Jr., MD [address] [place] [address] [address] [place] [address] Phone: tel: fax: Referral ID Status Reason Start Date Expiration Date Visits Re quested Visits Authorized [id number] Closed 02/09/2024 02/08/2025 1 1 Encounter Details Date Type Department Care Team (Late st Contact Info) Description 02/09/2024 Outside Orders [facility] Diagnostic Imaging - [place] [facility] [place] [address] [place] [address] [address] [place] [phone] Ludwin Rodriguez Jr., MD [address] [place] [address] [address] [place] [address] Calculus of kidney (Primary Dx) Social History [...] Date Herberth rded Speak language other than Malagasy at home Not on file 07/11/2023 Want [...] Results * X-ray abdomen KUB 1 view (02/09/2024 11:27 AM EDT) Anatomical Region Laterality Modality Abdomen X-Ray 02/09/2024 12:3 9 PM EDT Impressions 02/09/2024 12:42 PM EDT No acute process. Images reviewed, interpreted, and dictated by Dr. Cher Mason. Transcribed by Pattie Draper PA-C. Narrative 02/09/2024 12:42 PM EDT SINGLE VIEW ABDOMEN HISTORY: Nephrolithiasis COMPARISON: July 2019 ABDOMEN: There is a nonspecific, nonobstructive bowel gas pattern. The pelvic calcifications are stable. Procedure Note Hansa Mason MD - 02/09/2024 SINGLE VIEW ABDOMEN HISTORY: Nephrolithiasis COMPARISON: July 2019 ABDOMEN: There is a nonspecific, nonobstructive bowel gas pattern. The pelvic calcifications are stable. IMPRESSION: No acute process. Images reviewed, interpreted, and dictated by Dr. Cher Mason. Transcribed by Pattie Frankowski Baron, PA-C. us Ludwin Rodriguez Jr., MD IMG DIAGNOSTIC IMAGING ORDERABLES Final Result documented in this encounter Visit Diagnoses Diagnosis Calculus of kidney- Primary Calculus of kidney documented in this encounter Care Teams Mixing Place Supervisor Relationship Specialty Start Date End Date Luis Lu MD [address] [place] [phone] PCP - General Family Medicine 04/25/22 documented as of this encounter
--- OUTSIDE RECORDS SUMMARY | 2025-02-07 07:06 | XMS_ITS | Clinical Summary ---
Author Organization [employer] ([place], [place], [place], [place]) Address [address] [place] [address] Care Team Providers Care Assistant Commissioner Name Role Phone Luis Lu MD Primary Care Provider +1- [phone] Allergies No known active allergies Medications ezetimibe [...] Date Herberth rded Speak language other than Vincentian at home Not on file 07/11/2023 Want [...] Mass Index - - Plan of Treatment Health Maintenance Due Date Last Done Comments Medicare Initial AWV [id number] CT Colonography 1955 Colonoscopy 1955 Colorectal Cancer Screening 1955 FOBT/FIT 1955 Fit-DNA (Cologuard) 1955 Sigmoidoscopy 1955 Depression Screening (12+) 1967 Hepatitis C Screening 1973 Pneumococcal 50+ years (1 of 1 - PCV) 2005 Shingles Vaccine (Zoster) (1 of 2) 2005 DTAP/TDAP/TD VACCINES (2 - T d or Tdap) 08/29/2006 08/29/1996 Tobacco Cessation Counseling and Screening (12+) 04/25/2023 04/25/2022 COVID-19 VACCINE ( season) 2024 05/09/2021, 07/26/2020, 06/28/2020 Falls Risk Screening 2024 Influenza Vaccine (#1) 2025 03/22/2020 Respiratory Syncytial Virus (RSV) Adult or (1 - 1-dose 75+ series) 2030 Insurance [place] [id number] MEDICARE PART A B [employer] Care Teams Assistant Commissioner Relationship Specialty Start Date End Date Luis Lu MD [address] [place] [phone] PCP - General Family Medicine 04/25/22
[2025-02-07 07:13] LABS: Microscopic, Urine URINE MICROSCOPIC (MICROSCOPIC)
[2025-02-07 07:58] LABS: Bilirubin,Urine Negative (Negative); Color,Urine YELLOW (Yellow); Glucose,Urine (UA) Negative (Negative); Ketones,Urine Negative (Negative); Leukocyte Esterase,Urine 2+ (Negative); PH,Urine 6.5 (5.0-8.5); Protein,Urine Negative (Negative); Specific Gravity, Urine 1.015 (1.005-1.030); Urobilinogen,Urine 0.2 EU/dl (0.2)
[2025-02-07 08:12] LABS: Bacteria,Urine 1+ /lpf
[2025-02-07 08:13] LABS: Mucus,Urine Trace /lpf; WBC,Urine 20-50 #/hpf (0-3)
[2025-02-07 08:16] LABS: Albumin Level 4.7 g/dl (3.5-5.0); Chloride 103 mmol/L (98-107)
[2025-02-07 08:17] LABS: Potassium 3.9 mmoL/L (3.5-5.1); Sodium 140 mmol/L (136-145)
[2025-02-07 08:17] LABS: Albumin Level 4.7 g/dl (3.5-5.0); Chloride 103 mmol/L (98-107); Sodium 140 mmol/L (136-145)
[2025-02-07 08:18] LABS: Potassium 3.9 mmoL/L (3.5-5.1)
[2025-02-07 08:19] LABS: Alanine Aminotransferase 50 U/L (12-78); Albumin/Globulin Ratio 1.9 (1.1-1.8); Alkaline Phosphatase 55 U/L (38-126); Anion Gap 12.9 mEq/L (5-15); Aspartate Amino Transferase 36 U/L (17-59); Bilirubin,Total 2.4 mg/dl (0.2-1.3); Blood Urea Nitrogen 18 mg/dl (9-20); Carbon Dioxide 28 mmol/L (22.0-30.0); Creatinine,Serum 1.00 mg/dl (0.66-1.25); Estimated Glomerular Filt Rate 74 ml/min (>60); GFR (African American) 90 ML/MIN (>60); Globulin 2.5 g/dL (1.3-3.2); Total Protein,Serum 7.2 g/dl (6.3-8.2)
[2025-02-07 08:20] LABS: Anion Gap 11.9 mEq/L (5-15); Blood Urea Nitrogen 18 mg/dl (9-20); Carbon Dioxide 29 mmol/L (22.0-30.0); Creatinine,Serum 1.00 mg/dl (0.66-1.25); Estimated Glomerular Filt Rate 74 ml/min (>60); GFR (African American) 90 ML/MIN (>60)
[2025-02-07 08:20] LABS: Calcium 9.5 mg/dl (8.4-10.2); Cholesterol 197 mg/dl (140-200); Glucose 100 mg/dl (74-100); HDL Cholesterol 52 mg/dl (40-60); Triglycerides 171 mg/dl (30-150)
[2025-02-07 08:21] LABS: Calcium 9.8 mg/dl (8.4-10.2); Glucose 99 mg/dl (74-100); Phosphorous 3.3 mg/dl (2.5-4.5)
[2025-02-07 21:24] LABS: Vitamin B12 422 pg/mL (239-931)
== END 2025-02-07 23:59 | disposition home or self-care (01) ==
LOC: LAB 07:05
PROVIDERS: PCP Family Medicine; Visit Provider Student in an Organized Health Care Education/Training Program
DX: E78.5 Hyperlipidemia, unspecified (principal); I10 Essential (primary) hypertension; N40.2 Nodular prostate without lower urinary tract symptoms; E53.8 Deficiency of other specified B group vitamins; N28.9 Disorder of kidney and ureter, unspecified; Z12.5 Encounter for screening for malignant neoplasm of prostate
CPT/HCPCS: 36415; 80053; 80061; 80069; 81001; 82570; 82607; 84156; 87086; G0103